=== PATIENT | male | born 1935 | race Caucasian/White ===

== ENCOUNTER 2017-06-05 13:33 | Emergency (ER) | payer MEDICARE, BC ==
--- NOTE | 2017-06-05 16:27 | EDM.PDOC ---
ED HPI GENERAL MEDICAL PROBLEM - General Chief Complaint: Gastrointestinal Problem Stated Complaint: BOWEL MOVEMENT Time Seen by Provider: 06/05/17 15:59 Source of Information: Reports: Patient, RN, RN Notes Reviewed History Limitations: Reports: No Limitations - History of Present Illness INITIAL COMMENTS - FREE TEXT/NARRATIVE: Patient had surgery 06/03/17 for kidney stone. He took Ibuprofen for pain. Last BM was 2-3 days ago which was normal hard. His abdominal pain is rated 6-7/10 since yesterday after noon. Location: Reports: Abdomen Quality: Reports: Ache Severity: Moderate Improves with: Reports: None Worsens with: Reports: None Associated Symptoms: Reports: No Other Symptoms - Related Data Allergies Allergy/AdvReac Type Severity Reaction Status Date / Time No Known Allergies Allergy Verified 06/05/17 14:48 Home Meds: Home Meds Diltiazem HCl [Diltiazem 24Hr Cd] 240 mg PO DAILY 11/09/13 [History] Hydrochlorothiazide [Microzide] 12.5 mg PO DAILY 11/09/13 [History] Lisinopril 40 mg PO DAILY 11/09/13 [History] Simvastatin [Zocor] 40 mg PO BEDTIME 11/09/13 [History] Warfarin Sodium [Jantoven] 5 mg PO DAILY 11/09/13 [History] Past Medical History HEENT History: Reports: Cataract, Impaired Vision Cardiovascular History: Reports: Afib, Heart Failure, High Cholesterol, Hypertension Genitourinary History: Reports: Prostate Disorder - Infectious Disease History Infectious Disease History: Reports: Chicken Pox, Mumps - Past Surgical History HEENT Surgical History: Reports: Cataract Surgery Social & Family History - Family History Family Medical History: Noncontributory - Tobacco Use Smoking Status *Q: Former Smoker Used Tobacco, but Quit: Yes Month Tobacco Last Used: unknown - Caffeine Use Caffeine Use: Reports: Coffee - Recreational Drug Use Recreational Drug Use: No ED ROS GENERAL - Review of Systems Review Of Systems: ROS reveals no pertinent complaints other than HPI. ED EXAM, GI/ABD - Physical Exam Exam: See Below Exam Limited By: No Limitations General Appearance: Alert, WD/WN, No Apparent Distress Eyes: Bilateral: Normal Appearance Ears: Normal External Exam, Normal Canal, Hearing Grossly Normal, Normal TMs Nose: Normal Inspection, Normal Mucosa, No Blood Throat/Mouth: Normal Inspection, Normal Lips, Normal Teeth, Normal Gums, Normal Oropharynx, Normal Voice, No Airway Compromise Head: Atraumatic, Normocephalic Neck: Normal Inspection, Supple, Non-Tender, Full Range of Motion Respiratory/Chest: No Respiratory Distress, Lungs Clear, Normal Breath Sounds, No Accessory Muscle Use, Chest Non-Tender Cardiovascular: Normal Peripheral Pulses, Regular Rate, Rhythm, No Edema, No Gallop, No JVD, No Murmur, No Rub GI/Abdominal Exam: Other (hypoactive bowel sounds.) (Male) Exam: Deferred Rectal (Males) Exam: Deferred Back Exam: Normal Inspection, Full Range of Motion, NT Extremities: Normal Inspection, Normal Range of Motion, Non-Tender, Normal Capillary Refill, No Pedal Edema Neurological: Alert, Oriented, CN II-XII Intact, Normal Cognition, Normal Gait, Normal Reflexes, No Motor/Sensory Deficits Psychiatric: Normal Affect, Normal Mood Skin Exam: Warm, Dry, Intact, Normal Color, No Rash Lymphatic: No Adenopathy Course - Vital Signs Last Recorded V/S: Last Vital Signs Temp 98.2 F 06/05/17 14:43 Pulse 104 H 06/05/17 14:43 Resp 18 06/05/17 14:43 BP 160/86 H 06/05/17 14:43 Pulse Ox 96 06/05/17 14:43 - Orders/Labs/Meds Meds: Medications Discontinued Medications Generic Name Dose Route Start Last Admin Trade Name Freq PRN Reason Stop Dose Admin Magnesium Citrate 200 ml 06/05/17 16:56 06/05/17 17:10 Citrate Of Magnesia PO 06/05/17 16:57 200 ml ONETIME ONE Administration - Radiology Interpretation Free Text/Narrative:: Abdomen x-ray: Right ureteral stent with pigtails respectively in the right renal pelvis and distally midline urinary bladder. Cardiomegaly. Lung bases clear. No free subdiaphragmatic air. Stool in the descending left and sigmoid colon with a few air-fluid levels in the hepatic flexure. No sign of abdominal soft tissue mass or mechanical small bowel obstruction. 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 AP pelvis and hips unremarkable. See rad report. Departure - Departure Time of Disposition: 17:37 Disposition: Home, Self-Care 01 Condition: Fair Clinical Impression: Constipation Qualifiers: Constipation type: unspecified constipation type Qualified Code(s): K59.00 - Constipation, unspecified Abdominal pain Qualifiers: Abdominal location: generalized Qualified Code(s): R10.84 - Generalized abdominal pain - Discharge Information Instructions: Abdominal Pain, Adult, [id number], Constipation, Adult, Easy-to -Read Forms: ED Department Discharge Additional Instructions: May use MiraLax or generic substitute as directed on the packaging. May use Magnesium Citrate as directed on the packaging. Drink plenty of water.
--- NOTE | 2017-06-05 16:53 | CR ---
Clinical history: 82-year-old male abdominal pain ("constipation"). Interpretation: Right ureteral stent with pigtails respectively in the right renal pelvis and distall y midline urinary bladder. Cardiomegaly. Lung bases clear. No free subdiaphragmatic air. Stool in the descending left and sigmoid colon with a few air-fluid levels in the hepatic flexure. No sign of abdominal soft tissue mass or mechanical small bowel obstruction. 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 AP pelvis and hips unremarkable.
[2017-06-05] MEDS ORDERED: Magnesium Citrate Solution 296 ML Bottle PO ONE (16:56)
== END 2017-06-05 17:43 | disposition home or self-care (01) ==
LOC: DL.ED 13:33
DX: K59.00 Constipation, unspecified (principal); I11.0 Hypertensive heart disease with heart failure; I50.9 Heart failure, unspecified; E78.00 Pure hypercholesterolemia, unspecified; I48.91 Unspecified atrial fibrillation; Z79.899 Other long term (current) drug therapy; Z87.891 Personal history of nicotine dependence
CPT/HCPCS: 74020; 99284; A9270; 99283

== ENCOUNTER 2017-07-07 16:52 | Observation (INO) | payer MEDICARE, BC ==
--- NOTE | 2017-07-07 17:20 | EDM.PDOC ---
ED HPI GENERAL MEDICAL PROBLEM - General Chief Complaint: Trauma Stated Complaint: FELL AND HIT HEAD Time Seen by Provider: 07/07/17 16:52 Source of Information: Reports: Patient, Family, RN, RN Notes Reviewed History Limitations: Reports: No Limitations - History of Present Illness INITIAL COMMENTS - FREE TEXT/NARRATIVE: PRIMARY TRAUMA SURVEY: Arrives per private vehicle in a wheelchair. Pt. awake, alert, oriented to person, place, and date. AIRWAY: Patent nasal and oral airways. Conversant with clear speech. BREATHING: Spontaneous respirations, with lungs CTA B/L. Good color, no cyanosis. CIRCULATION: Intact peripheral pulses at all 4 distal extremities, normal capillary refill time at all four extremities distal digits. Heart irregular, no murmur, no rub. DISABILITY/ DEFORMITIES: Minimal bleeding from superficial cuts above the right eyebrow, right side of the nose. Ecchymosis and hematoma forming above the right eyebrow. No upper or lower extremity pain, obvious deformity, or other signs of injury. Linda pelvis intact, stable and non-tender. Abdomen benign to exam. Chest non-tender anteriorly, no flail chest, crepitus, or subcutaneous emphysema. CN II-XII intact. Skin clean, dry, warm, with some superficial lacerations to the right eyebrow and nose. EXPOSURE: Pt. was log rolled with maintenance of c-spine immobilization, clothing/shirt was removed. No visible injury to back, no vertebral linda tenderness. Pt. returned via log roll to supine position on firm foam padded ER gurney. Pt presents to ER per private vehicle after falling and hitting his head. He states he was out for a 1 mile walk, as he does often, when he felt dizzy and lost his balance and fell on his face. He states his glasses are what did the damage to his face. Patient is on anticoagulants, and also due to age, a trauma code was called. A cervical collar was placed. Upon arrival patient is alert and oriented, answering questions appropriately. He denies pain other than directly on the hematoma forming on his right eyebrow. Onset: Today, Sudden - Related Data Allergies Allergy/AdvReac Type Severity Reaction Status Date / Time No Known Allergies Allergy Verified 06/05/17 14:48 Home Meds: Home Meds Diltiazem HCl [Diltiazem 24Hr Cd] 240 mg PO DAILY 11/09/13 [History] Hydrochlorothiazide [Microzide] 12.5 mg PO DAILY 11/09/13 [History] Lisinopril 40 mg PO DAILY 11/09/13 [History] Simvastatin [Zocor] 40 mg PO BEDTIME 11/09/13 [History] Warfarin Sodium [Jantoven] 5 mg PO DAILY 11/09/13 [History] Potassium Chloride 20 meq PO BID 07/07/17 [History] Past Medical History HEENT History: Reports: Cataract, Impaired Vision Cardiovascular History: Reports: Afib, Heart Failure, High Cholesterol, Hypertension Genitourinary History: Reports: Prostate Disorder - Infectious Disease History Infectious Disease History: Reports: Chicken Pox, Mumps - Past Surgical History HEENT Surgical History: Reports: Cataract Surgery Social & Family History - Family History Family Medical History: Noncontributory - Tobacco Use Smoking Status *Q: Former Smoker Used Tobacco, but Quit: Yes Month Tobacco Last Used: unknown - Caffeine Use Caffeine Use: Reports: Coffee - Recreational Drug Use Recreational Drug Use: No Review of Systems - Review of Systems Review Of Systems: ROS reveals no pertinent complaints other than HPI. ED EXAM, GENERAL - Physical Exam Exam: See Below Exam Limited By: No Limitations General Appearance: Alert, WD/WN, No Apparent Distress Eye Exam: Bilateral Eye: EOMI, PERRL (3) Ears: Normal External Exam, Normal Canal, Hearing Grossly Normal, Normal TMs Nose: Normal Inspection, Normal Mucosa, No Blood, Other (superficial cuts to the bridge of the nose, 0.5cm) Throat/Mouth: Normal Inspection, Normal Lips, Normal Teeth, Normal Gums, Normal Oropharynx, Normal Voice, No Airway Compromise Head: Normocephalic, Facial Swelling, Facial Tenderness, Sinus Tenderness Neck: Normal Inspection, Supple, Non-Tender, Full Range of Motion Respiratory/Chest: No Respiratory Distress, Lungs Clear, Normal Breath Sounds, No Accessory Muscle Use, Chest Non-Tender Cardiovascular: Normal Peripheral Pulses, No Edema, No Gallop, No JVD, No Murmur , No Rub, Irregularly Irregular Peripheral Pulses: 2+: Radial (L), Radial (R) GI/Abdominal: Normal Bowel Sounds, Soft, Non-Tender, No Organomegaly, No Distention, No Abnormal Bruit, No Mass, Pelvis Stable (Male) Exam: Deferred Rectal (Males) Exam: Deferred Back Exam: Normal Inspection, Full Range of Motion Extremities: Normal Inspection, Normal Range of Motion, Non-Tender, No Pedal Edema, Normal Capillary Refill Neurological: Alert, Oriented, Normal Cognition, No Motor/Sensory Deficits Psychiatric: Normal Affect, Normal Mood Skin Exam: Warm, Dry, Normal Color, No Rash Lymphatic: No Adenopathy Front/Back Body Diagram: 1 - Large hematoma, ecchymosis, superficial cut with small amount of bleeding 2 - ecchymosis, superficial cut with minimal bleeding EKG INTERPRETATION EKG Date: 07/07/17 Time: 18:20 Rhythm: A-Fib Rate (Beats/Min): 88 Comparison: NA - No Prior EKG Course - Orders/Labs/Meds Orders: Active Orders 24 hr Category Date Time Status EKG Documentation Completion [RC] STAT Care 07/07/17 18:09 Active Peripheral IV Care [RC] . DIRECTED Care 07/07/17 17:03 Active Cervical Spine wo Cont [CT] Urgent Exams 07/07/17 17:10 Taken Head wo Cont [CT] Urgent Exams 07/07/17 17:10 Taken Max Facial Sinus wo Cont [CT] Urgent Exams 07/07/17 17:10 Taken UA W/MICROSCOPIC [URIN] Stat Lab 07/07/17 18:19 Results Sodium Chloride 0.9% [Saline Flush] Med 07/07/17 17:02 Active 10 ml FLUSH ASDIRECTED PRN Peripheral IV Insertion Adult [OM.PC] Stat Oth 07/07/17 17:02 Ordered Medication Orders Sodium Chloride (Saline Flush) 10 ml FLUSH ASDIRECTED PRN PRN Reason: Keep Vein Open Last Admin: 07/07/17 18:25 Dose: 10 ml Labs: Laboratory Tests 07/07/17 07/07/17 07/07/17 Range/Units 17:06 17:06 17:06 WBC 7.5 (5.0-10.0) 10^3/uL RBC 5.08 (4.6-6.2) 10^6/uL Hgb 15.3 (14.0-18.0) g/dL Hct 44.3 (40.0-54.0) % MCV 87.2 (80-100) fL MCH 30.1 (27.0-34.0) pg MCHC 34.5 (33.0-35.0) g/dL Plt Count 181 (150-450) 10^3/uL Neut % (Auto) 78.4 H (42.2-75.2) % Lymph % (Auto) 8.9 L (20.5-50.1) % Tate % (Auto) 11.0 H (2-8) % Eos % (Auto) 1.3 (1.0-3.0) % Baso % (Auto) 0.4 (0.0-1.0) % PT 23.4 H (9.0-12.0) SEC INR 2.3 H (0.9-1.2) Sodium 139 (135-145) mmol/L Potassium 3.4 L (3.6-5.0) mmol/L Chloride 103 (101-111) mmol/L Carbon Dioxide 24.0 (21.0-31.0) mmol/L Anion Gap 15.4 BUN 30 H (7-18) mg/dL Creatinine 1.3 (0.6-1.3) mg/dL Est Cr Clr Drug Dosing TNP Estimated GFR (MDRD) 53 BUN/Creatinine Ratio 23.07 Glucose 100 (74-105) mg/dL Calcium 9.2 (8.4-10.2) mg/dl Total Bilirubin 1.2 H (0.2-1.0) mg/dL AST 30 (10-42) IU/L ALT 18 (10-60) IU/L Alkaline Phosphatase 76 (42-121) IU/L Troponin I 0.03 H* (0.00-0.02) ng/ml Total Protein 6.8 (6.7-8.2) g/dl Albumin 3.6 (3.2-5.5) g/dl Globulin 3.2 Albumin/Globulin Ratio 1.13 Urine Color (YELLOW) Urine Appearance (CLEAR) Urine pH (5.0-9.0) Ur Specific [facility] (1.005-1.030) Urine Protein (NEGATIVE) Urine Glucose (UA) (NEGATIVE) Urine Ketones (NEGATIVE) Urine Occult Blood (NEGATIVE) Urine Nitrite (NEGATIVE) Urine Bilirubin (NEGATIVE) Urine Urobilinogen (0.2-1.0) mg/dL Ur Leukocyte Esterase (NEGATIVE) 07/07/17 Range/Units 18:19 WBC (5.0-10.0) 10^3/uL RBC (4.6-6.2) 10^6/uL Hgb (14.0-18.0) g/dL Hct (40.0-54.0) % MCV (80-100) fL MCH (27.0-34.0) pg MCHC (33.0-35.0) g/dL Plt Count (150-450) 10^3/uL Neut % (Auto) (42.2-75.2) % Lymph % (Auto) (20.5-50.1) % Tate % (Auto) (2-8) % Eos % (Auto) (1.0-3.0) % Baso % (Auto) (0.0-1.0) % PT (9.0-12.0) SEC INR (0.9-1.2) Sodium (135-145) mmol/L Potassium (3.6-5.0) mmol/L Chloride (101-111) mmol/L Carbon Dioxide (21.0-31.0) mmol/L Anion Gap BUN (7-18) mg/dL Creatinine (0.6-1.3) mg/dL Est Cr Clr Drug Dosing Estimated GFR (MDRD) BUN/Creatinine Ratio Glucose (74-105) mg/dL Calcium (8.4-10.2) mg/dl Total Bilirubin (0.2-1.0) mg/dL AST (10-42) IU/L ALT (10-60) IU/L Alkaline Phosphatase (42-121) IU/L Troponin I (0.00-0.02) ng/ml Total Protein (6.7-8.2) g/dl Albumin (3.2-5.5) g/dl Globulin Albumin/Globulin Ratio Urine Color Yellow (YELLOW) Urine Appearance Clear (CLEAR) Urine pH 5.5 (5.0-9.0) Ur Specific [facility] [facility] 1.020 (1.005-1.030) Urine Protein 100 H (NEGATIVE) Urine Glucose (UA) Negative (NEGATIVE) Urine Ketones Negative (NEGATIVE) Urine Occult Blood Small H (NEGATIVE) Urine Nitrite Negative (NEGATIVE) Urine Bilirubin Negative (NEGATIVE) Urine Urobilinogen 0.2 (0.2-1.0) mg/dL Ur Leukocyte Esterase Negative (NEGATIVE) Meds: Medications Generic Name Dose Route Start Last Admin Trade Name Freq PRN Reason Stop Dose Admin Sodium Chloride 10 ml 07/07/17 17:02 07/07/17 18:25 Saline Flush FLUSH 10 ml ASDIRECTED PRN Administration Keep Vein Open - Radiology Interpretation Free Text/Narrative:: Head CT wo contrast: No acute findings C Spine CT wo contrast: No acute findings Max/facial CT wo contrast: No acute findings See rad report Departure - Departure Time of Disposition: 18:49 Disposition: Refer to Observation Clinical Impression: Contusion Qualifiers: Encounter type: initial encounter Contusion area: head Contusion of head detail : orbital tissues Laterality: right Qualified Code(s): S05.11XA - Contusion of eyeball and orbital tissues, right eye, initial encounter Contusion of nose Qualifiers: Encounter type: initial encounter Qualified Code(s): S00.33XA - Contusion of nose, initial encounter Contusion of face Qualifiers: Encounter type: initial encounter Qualified Code(s): S00.83XA - Contusion of other part of head, initial encounter - Discharge Information Referrals: Renate Rios PA [Primary Care Provider] - Forms: ED Department Discharge - My Orders Last 24 Hours: My Active Orders 07/07/17 17:02 Sodium Chloride 0.9% [Saline Flush] 10 ml FLUSH ASDIRECTED PRN Peripheral IV Insertion Adult [OM.PC] Stat 07/07/17 17:03 Peripheral IV Care [RC] . DIRECTED 07/07/17 17:10 Cervical Spine wo Cont [CT] Urgent Head wo Cont [CT] Urgent Max Facial Sinus wo Cont [CT] Urgent 07/07/17 18:09 EKG Documentation Completion [RC] STAT 07/07/17 18:19 UA W/MICROSCOPIC [URIN] Stat - Assessment/Plan Last 24 Hours: My Active Orders 07/07/17 17:02 Sodium Chloride 0.9% [Saline Flush] 10 ml FLUSH ASDIRECTED PRN Peripheral IV Insertion Adult [OM.PC] Stat 07/07/17 17:03 Peripheral IV Care [RC] . DIRECTED 07/07/17 17:10 Cervical Spine wo Cont [CT] Urgent Head wo Cont [CT] Urgent Max Facial Sinus wo Cont [CT] Urgent 07/07/17 18:09 EKG Documentation Completion [RC] STAT 07/07/17 18:19 UA W/MICROSCOPIC [URIN] Stat
[2017-07-07 17:40] LABS: CHLORIDE,CL 103 mmol/L (101-111); SODIUM,NA 139 mmol/L (135-145)
[2017-07-07] MEDS: Sodium Chloride 0.9% 10 ML Syringe FLUSH PRN (18:25)
[2017-07-07] MEDS ORDERED: oxyCODONE 5 MG Tab PO PRN (20:57)
[2017-07-07] MEDS ORDERED: Ondansetron 4 MG Tab.DIS PO PRN (20:57)
[2017-07-07] MEDS ORDERED: Phytonadione ORAL 2.5mg/2.5ml Soln Simple Syrup U/D PO ONE (21:02)
[2017-07-07] MEDS: Potassium Chloride 10 MEQ Tab.ER PO SCH (22:16)
--- NOTE | 2017-07-08 00:49 | HP ---
CHIEF COMPLAINT: Had a fall. HISTORY OF PRESENT ILLNESS: Mr. Emilee Buckner is an 82-year-old male with a medical history significant for hypertension, hyperlipidemia, paroxysmal atrial fibrillation on chronic anticoagulation with Coumadin, history of prostate cancer in the past requiring Lupron and external beam radiation treatment in the past, presented to the ER after having a fall and was noted to have bleeding around the periorbital area on the right side. The patient had a CT scan of the head cervical spine and also the facial bones, which did not show any acute fracture or an acute pathology, but the patient is being referred to observation status for closer monitoring. At this time, the patient complains of mild pain around the periorbital site, but denied any headache, no changes in the vision, no nausea, and no vomiting. The patient claims that earlier today while he was walking outside the house, shoes gave away, he slipped and fell onto his face and also his glasses broke and injured his right periorbital area. He did not lose his consciousness. A bystander helped him to slat pickler from the ground. He denied any palpitations or dizziness or loss of consciousness during or after the fall. He denied any seizure-like activity. Also, he denied any loss of bladder tone or rectal tone during this event. He denies any fevers or chills in the last few days. No nausea vomiting or diarrhea in the last few days. No complaints of hematemesis, hematochezia, or melanotic stools in the last few days. No fevers or chills in the last few days. No cough with sputum in the last few days. No burning micturition in the last few days. The patient denied any history of chest pains on exertion. No history of dyspnea on exertion. No history of orthopnea or paroxysmal nocturnal dyspnea. The patient denied any history of hematemesis, hematochezia, or melanotic stools in the past. Normal bowel and bladder habits, but he has been noticing some increased nocturnal urination. REVIEW OF SYSTEMS: A complete review of system including skin, ear, nose, and throat, cardiovascular system, respiratory system, gastrointestinal system, genitourinary system, hematology, oncology, neurology, allergy, immunology, and constitutional were all evaluated and they were negative except for the above- said notes. 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 PAST SURGICAL HISTORY: Significant for cataract extraction with implant, atrial cardioversion, which was unsuccessful, and skin biopsy. FAMILY HISTORY: Significant for heart disease in his mother and cancer in his father, Alzheimer disease in one of his sisters, cancer in another sister, and heart disease and prostate cancer in his brothers. SOCIAL HISTORY: The patient denied any history of smoking tobacco. No history of alcohol intake. ALLERGIES: No known drug allergies. HOME MEDICATIONS: Include: 1. Multivitamin tablet twice a day. 2. Coumadin 5 mg daily. 3. Potassium chloride 20 mg twice a day. 4. Diltiazem 240 mg daily. 5. Hydrochlorothiazide 12.5 mg daily. 6. Lisinopril 40 mg daily. 7. Simvastatin 40 mg at bedtime. PHYSICAL EXAMINATION: Vital Signs: Irregular heart rate. General Appearance: The patient is well oriented to time, place, and person. Follows commands spontaneously. Cardiovascular: S1, S2 heard with normal intensity. No gallops. Respiratory: Clear to auscultation bilaterally. No wheeze. No crepitations. Abdomen: Soft. Bowel sounds positive. Nontender. No rigidity. No guarding. No rebound tenderness. Extremities: No edema bilateral lower extremities. Neurologic: No gross focal neurological deficits. Equal strength in all the 4 extremities. Pupils are equally reactive to light. Head Exam: The patient is noted to have lacerations around the periorbital area on the right side. He has some mild ecchymosis, but his extraocular movements are equal on both the sides, and pupils are equally reactive on both the sides, no major trauma noted to the scalp area. LABORATORY DATA: WBC 7.5, hemoglobin 15.3, hematocrit 44.3, and platelet count 181. INR 2.3. Sodium 139, potassium 3.4, chloride 103, bicarb 24, BUN 30, creatinine 1.3, glucose 100, total bilirubin 1.2, AST 30, ALT 18, troponin 0.03. Urinalysis negative for nitrites, negative for leukocytes. CT scan of the brain did not show any acute pathology. No acute intracranial hemorrhage. CT scan of the cervical spine shows no fracture. CT scan of the facial bone shows no acute fractures. ASSESSMENT: 1. Closed head injury. 2. Status post fall resulting in closed head injury. 3. Coagulopathy from Coumadin use. 4. Hypertension. 5. Hyperlipidemia. 6. Atrial fibrillation. 7. On chronic anticoagulation with Coumadin. PLAN: 1. Status post fall resulting in closed head injury. The patient will be referred to observation status. He is noted to be on Coumadin, and his INR is therapeutic levels. We will hold off the Coumadin for now. No major bleeding noted except for the periorbital area where he has some ecchymosis. We will give him mild dose of vitamin K around 2 mg of vitamin K to avoid any further complications. Currently, CT scan of the head did not show any acute bleed, but given his age and possible concussion injury resulting in possible subdural hematoma, we will hold off the Coumadin, reverse INR at this time and resume it in next 2 days if he remains hemodynamically stable. 2. Hypertension. The patient's blood pressure will be closely monitored. He is noted to be on diltiazem. Continue the same. 3. Atrial fibrillation. Rate seems to be well controlled. Continue the diltiazem. 4. DVT prophylaxis. Avoid any heparin products secondary to recent fall and periorbital bleed and elevated INR. 5. Code status. The patient wants to be full code. 6. Discussed with the patient regarding the plan of care. Discussed with ER physician regarding the plan of care. Reviewed the labs and medications. Reviewed the old charts. [facility] /[id number] MTDD
[2017-07-08 07:05] LABS: CHLORIDE,CL 106 mmol/L (101-111); SODIUM,NA 139 mmol/L (135-145)
[2017-07-08] MEDS ORDERED: Diltiazem 240 MG Cap.CD PO SCH (09:00)
[2017-07-08] MEDS ORDERED: Lutein/Minerals/Vit A,C & E Tab PO SCH (09:00)
[2017-07-08] MEDS ORDERED: Potassium Chloride 10 MEQ Tab.ER PO SCH (09:00)
[2017-07-08] MEDS ORDERED: Lisinopril 20 MG Tab PO SCH (09:00)
[2017-07-08] MEDS ORDERED: Hydrochlorothiazide 25 MG Tab PO SCH (09:00)
[2017-07-08] MEDS: Potassium Chloride 10 MEQ Tab.ER PO SCH (09:03)
[2017-07-08] MEDS: Sodium Chloride 0.9% 10 ML Syringe FLUSH PRN (09:18)
[2017-07-08] MEDS ORDERED: Potassium Chloride 10 MEQ Tab.ER PO ONE (10:22)
[2017-07-08] MEDS ORDERED: Simvastatin 40 MG Tab PO SCH (21:00)
--- NOTE | 2017-07-09 01:20 | DISCH ---
ADMITTING DIAGNOSES: 1. Closed head injury status post fall. 2. Mild trauma to the periorbital area. 3. Coagulopathy from Coumadin use. DISCHARGE DIAGNOSES: 1. Closed head injury resulting from a fall. 2. Periorbital wound, much improved. No evidence of hematoma at this time. 3. Coagulopathy from Coumadin use. Received vitamin K on this admission. HISTORY OF PRESENTING ILLNESS: Mr. Emilee Buckner is an 82-year-old male with medical history significant for hypertension, hyperlipidemia, paroxysmal atrial fibrillation, on chronic anticoagulation with Coumadin, admitted after having a fall when his shoes gave away and fell on the pavement. He fell on his head first, resulting in trauma around the right periorbital area. The patient had a CT scan of the cervical spine, CT scan of the head and facial bones at the time of admission, which did not show any acute fracture or any acute intracranial hemorrhage. The patient was noted to have mild ecchymosis at the right periorbital area. The patient was given a low dose of vitamin K as his INR was in therapeutic range. The patient responded well to that treatment. He denied any further complaints of nausea or vomiting. No headaches. No changes in the vision. He is able to ambulate well without any difficulty. He denied any dizziness. No focal neurological deficits were observed. The patient was discharged home in stable condition. He was advised to hold the Coumadin for next 2 days and follow with his primary care physician within 1 week of time. He was advised not to drive any vehicles at this time. DISCHARGE MEDICATIONS: 1. Diltiazem 240 mg daily. 2. Hydrochlorothiazide 12.5 mg daily. 3. Lisinopril 40 mg daily. 4. Potassium chloride 20 mEq twice a day. 5. Simvastatin 40 mg at bedtime. 6. Coumadin 5 mg daily. To hold the Coumadin for next 2 days to avoid any complications of bleeding secondary to recent trauma. PHYSICAL EXAMINATION: On the day of discharge: Vital Signs: Temperature of 98.1, pulse of 74, blood pressure 128/61, respiratory rate of 20, saturating at 98% on room air. General Appearance: The patient is well oriented to time, place, and person. Follows commands spontaneously. Cardiovascular System: S1, S2 heard with normal intensity. No gallops. Respiratory System: Clear to auscultation bilaterally. No wheeze. No crepitations. Abdomen: Soft. Bowel sounds positive. Nontender. No rigidity. Extremities: No edema in bilateral lower extremities. Neurology: No gross focal neurological deficits. CONDITION ON ADMISSION: Poor. CONDITION ON DISCHARGE: Stable. ACTIVITY: As tolerated. DIET: Cardiac healthy diet. FOLLOWUP: Follow up with primary care physician in next one week of time. [facility] /[id number]
--- NOTE | 2017-07-09 13:27 | EKG ---
07/07/2017- RK HO J - FINDINGS: A 12-lead EKG interpretation shows atrial fibrillation with heart rate of 88. No significant ST elevation or ST depression noted on this 12-lead EKG. Nonspecific ST-T wave changes noted on leads V2 and V3. [facility] /[id number]
== END 2017-07-08 13:15 | disposition home or self-care (01) ==
LOC: DL.ED 16:52 → DL.MS 18:52 → UNDOADMOB 18:52 → DL.MS 20:57
PROVIDERS: ADMIT Internal Medicine; ATTEND Internal Medicine
DX: S09.90XA Unspecified injury of head, initial encounter (principal); S05.90XA Unspecified injury of unspecified eye and orbit, initial encounter; I10 Essential (primary) hypertension; E78.5 Hyperlipidemia, unspecified; I48.0 Paroxysmal atrial fibrillation; D68.9 Coagulation defect, unspecified; Z79.01 Long term (current) use of anticoagulants; W01.10XA Fall on same level from slipping, tripping and stumbling with subsequent striking against unspecified object, initial encounter; Z79.899 Other long term (current) drug therapy; Z87.891 Personal history of nicotine dependence
CPT/HCPCS: 36415; 70450; 70486; 72125; 80048; 80053; 81001; 84484; 85025; 85027; 85610; 93005; 93010; 96372; 97161; 97165; 99285; A9270; G0378; J3430; J7050; 99284

== ENCOUNTER 2020-08-26 20:18 | Emergency (ER) | payer MEDICARE, BC ==
[2020-08-26 21:45] LABS: ANION GAP 15.1 mEq/L (7-13)
--- NOTE | 2020-08-26 21:55 | EDM.PDOC ---
ED HPI GENERAL MEDICAL PROBLEM - General Chief Complaint: Lower Extremity Injury/Pain Stated Complaint: WEAKNESS, BILATERAL KNEE PAIN, EDEMA, VOMITING Time Seen by Provider: 08/26/20 21:52 Source of Information: Reports: Patient, Family History Limitations: Reports: No Limitations - History of Present Illness INITIAL COMMENTS - FREE TEXT/NARRATIVE: pt [facility] and was leaving but fell onto both knees when glasses fogged up from his mask. bystander helped him back up. denies head/neck injury or pain. been very weak and been vomiting on-off no diarrhoea. got covid vax yesterday and were warned about side effects. - Related Data Allergies Allergy/AdvReac Type Severity Reaction Status Date / Time No Known Allergies Allergy Verified 08/26/20 21:19 Home Meds: Home Meds Diltiazem [Dilacor XR] 240 mg PO DAILY 08/26/20 [History] Potassium Chloride 20 meq PO DAILY 08/26/20 [History] Simvastatin [Zocor] 40 mg PO DAILY 08/26/20 [History] Warfarin [Coumadin] 3 mg PO ASDIRECTED 08/26/20 [History] hydroCHLOROthiazide [Hydrochlorothiazide] 12.5 mg PO DAILY 08/26/20 [History] lisinopriL [Lisinopril] 40 mg PO DAILY 08/26/20 [History] Past Medical History HEENT History: Reports: Cataract, Impaired Vision, Macular Degeneration Cardiovascular History: Reports: Afib, Heart Failure, High Cholesterol, Hypertension Genitourinary History: Reports: Prostate Disorder - Infectious Disease History Infectious Disease History: Reports: Chicken Pox, Mumps - Past Surgical History HEENT Surgical History: Reports: Cataract Surgery Social & Family History - Family History Family Medical History: No Pertinent Family History - Tobacco Use Tobacco Use Status *Q: Never Tobacco User Second Hand Smoke Exposure: No - Caffeine Use Caffeine Use: Reports: Coffee - Recreational Drug Use Recreational Drug Use: No Review of Systems - Review of Systems Review Of Systems: Comprehensive ROS is negative, except as noted in HPI. ED EXAM, GENERAL - Physical Exam Exam: See Below Exam Limited By: No Limitations General Appearance: Alert, WD/WN, Mild Distress, Other (discomfort) Ears: Hearing Grossly Normal Throat/Mouth: Normal Voice, No Airway Compromise Head: Atraumatic Neck: Non-Tender, Full Range of Motion Respiratory/Chest: No Respiratory Distress Cardiovascular: Regular Rate, Rhythm GI/Abdominal: Soft, Non-Tender (Male) Exam: Deferred Rectal (Males) Exam: Deferred Extremities: Other (bilateral knee swelling tender R/P, NV wnl, gait unable due to pain and weakness. no ecchymosis) Neurological: Alert, Oriented, Normal Cognition, No Motor/Sensory Deficits Psychiatric: Flat Affect Skin Exam: Warm, Dry, Normal Color Lymphatic: No Adenopathy Course - Vital Signs Last Recorded V/S: Last Vital Signs Temp 37.0 C 08/26/20 21:11 Pulse 75 08/26/20 21:11 Resp 20 08/26/20 21:11 BP 168/94 H 08/26/20 21:11 Pulse Ox 96 08/26/20 21:11 - Orders/Labs/Meds Labs: Laboratory Tests 08/26/20 08/26/20 08/26/20 Range/Units 21:20 21:20 21:20 WBC 11.7 H (5.0-10.0) 10^3/uL RBC 5.26 (4.6-6.2) 10^6/uL Hgb 15.8 (14.0-18.0) g/dL Hct 46.0 (40.0-54.0) % MCV 87.5 (80-100) fL MCH 30.0 (27.0-34.0) pg MCHC 34.3 (33.0-35.0) g/dL Plt Count 156 (150-450) 10^3/uL Neut % (Auto) 84.4 H (42.2-75.2) % Lymph % (Auto) 1.8 L (20.5-50.1) % [place] % (Auto) 13.6 H (2-8) % Eos % (Auto) 0.0 L (1.0-3.0) % Baso % (Auto) 0.2 (0.0-1.0) % PT 48.1 H (9.0-12.0) SEC INR 5.1 H (0.9-1.2) Sodium 136 (136-145) mmol/L Potassium 4.1 (3.5-5.1) mmol/L Chloride 99 (98-107) mmol/L Carbon Dioxide 26 (21-32) mmol/L Anion Gap 15.1 H (7-13) mEq/L BUN 27 H (7-18) mg/dL Creatinine 1.39 H (0.70-1.30) mg/dL Est Cr Clr Drug Dosing 41.58 mL/min Estimated GFR (MDRD) 49 BUN/Creatinine Ratio 19.4 (No establ ref range) Glucose 167 H (74-99) mg/dL Lactic Acid (0.4-2.0) mmol/L Calcium 8.9 (8.5-10.1) mg/dL Total Bilirubin 2.8 H (0.2-1.0) mg/dL AST 24 (15-37) U/L ALT 27 (16-63) U/L Alkaline Phosphatase 111 (46-116) U/L Total Protein 7.0 (6.4-8.2) g/dL Albumin 3.4 (3.4-5.0) g/dL Globulin 3.6 Albumin/Globulin Ratio 0.9 01/29/21 Range/Units 21:20 WBC (5.0-10.0) 10^3/uL RBC (4.6-6.2) 10^6/uL Hgb (14.0-18.0) g/dL Hct (40.0-54.0) % MCV (80-100) fL MCH (27.0-34.0) pg MCHC (33.0-35.0) g/dL Plt Count (150-450) 10^3/uL Neut % (Auto) (42.2-75.2) % Lymph % (Auto) (20.5-50.1) % [place] % (Auto) (2-8) % Eos % (Auto) (1.0-3.0) % Baso % (Auto) (0.0-1.0) % PT (9.0-12.0) SEC INR (0.9-1.2) Sodium (136-145) mmol/L Potassium (3.5-5.1) mmol/L Chloride (98-107) mmol/L Carbon Dioxide (21-32) mmol/L Anion Gap (7-13) mEq/L BUN (7-18) mg/dL Creatinine (0.70-1.30) mg/dL Est Cr Clr Drug Dosing mL/min Estimated GFR (MDRD) BUN/Creatinine Ratio (No establ ref range) Glucose (74-99) mg/dL Lactic Acid 2.5 H* (0.4-2.0) mmol/L Calcium (8.5-10.1) mg/dL Total Bilirubin (0.2-1.0) mg/dL AST (15-37) U/L ALT (16-63) U/L Alkaline Phosphatase (46-116) U/L Total Protein (6.4-8.2) g/dL Albumin (3.4-5.0) g/dL Globulin Albumin/Globulin Ratio - Re-Assessments/Exams Free Text/Narrative Re-Assessment/Exam: 08/26/20 22:[address] Black @ who kindly accepted pt. Departure - Departure Time of Disposition: 22:53 Disposition: DC/Tfer to Acute Hospital 02 Condition: Fair Clinical Impression: Vomiting after vaccination, Dehydration symptoms, Weakness, Elevated INR (international normalized ratio) due to prior anticoagulant medication ingestion, Bilateral knee effusions - Discharge Information Forms: Interfacility Transfer [facility] Sepsis Event Note (ED) - Evaluation Sepsis Screening Result: No Definite Risk - Focused Exam Vital Signs: Vital Signs Temp Pulse Resp BP Pulse Ox 08/26/20 21:11 37.0 C 75 20 168/94 H 96
--- NOTE | 2020-08-26 22:00 | CT ---
PROCEDURE INFORMATION: Exam: CT Right Lower Extremity Without Contrast, Knee Exam date and time: 08/26/2020 9:29 PM Age: 85 years old Clinical indication: Other: Fell on both knees--unable to stand TECHNIQUE: Imaging protocol: CT of the Right lower extremity without contrast was performed. Exam focused on the knee. Total images: 342 Radiation optimization: All CT scans at this facility use at least one of these dose optimization techniques: automated exposure control; mA and/or kV adjustment per patient size (includes targeted exams where dose is matched to clinical indication); or iterative reconstruction. COMPARISON: No relevant prior studies available. FINDINGS: Bones/joints: Osteopenia. Moderate right knee joint effusion. Severe joint space narrowing in the medial tibiofemoral compartment. Moderate joint space narrowing in the lateral compartment. Mild medial and lateral joint line spurring. Chondrocalcinosis in the fibro cartilaginous structures of the knee consistent with CPPD. No fractures are identified. Mild articular spurring is seen along the weight-bearing articular surface of the medial femoral condyle and along the posterior aspect of the lateral femoral condyle weight-bearing articular surface. 4 mm subarticular bone island in the lateral femoral condyle. Patellofemoral alignment is normal for positioning. Mild patellofemoral spurring. Moderate chondral thinning along the lateral patellar facet and lateral trochlear ridge. Soft tissues: Small Reyes's cyst arising from the semimembranosus/gastrocnemius bursa measuring 2 x 1.8 by 3.5 cm. Asymmetric fatty muscular atrophy involving the posterior compartment musculature of the right calf, nonspecific. Vasculature: Moderate calcific atherosclerosis in the distal SFA and popliteal artery. Varicose veins in the posterior calf small saphenous vein distribution measuring up to 8 mm diameter. IMPRESSION: 1. No fracture or dislocation is identified. 2. Osteopenia and advanced osteoarthritic changes which are most pronounced in the medial compartment. 3. Chondrocalcinosis suggesting CPPD. 4. Moderate joint effusion and small Reyes's cyst. 5. Asymmetric muscular atrophy involving the right calf musculature with extensive fatty transformation. This is nonspecific. 6. Varicose veins in the posterior calf small saphenous vein distribution measuring up to 8 mm in diameter. PROCEDURE INFORMATION: Exam: CT Left Lower Extremity Without Contrast, Knee Exam date and time: 08/26/2020 9:29 PM Age: 85 years old Clinical indication: Other: Fell on both knees--unable to stand TECHNIQUE: Imaging protocol: CT of the Left lower extremity without contrast was performed. Exam focused on the knee. Radiation optimization: All CT scans at this facility use at least one of these dose optimization techniques: automated exposure control; mA and/or kV adjustment per patient size (includes targeted exams where dose is matched to clinical indication); or iterative reconstruction. COMPARISON: No relevant prior studies available. FINDINGS: Bones/joints: Osteopenia. Moderate joint effusion primarily in the suprapatellar bursa. There is moderate chondrocalcinosis in the fibrocartilage of the tibiofemoral compartments suggestive of CPPD. No fracture. Severe joint space narrowing in the medial tibiofemoral compartment. Moderate lateral compartment degenerative joint space narrowing. Mild medial and lateral joint line spurring. Moderate patellofemoral spurring and chondral thinning. Mild articular spurring along the weight-bearing surfaces of the medial and lateral femoral condyles. Soft tissues: Small Reyes cyst arising from the semimembranosus gastrocnemius bursa measuring 1.5 x 1.4 by 2.3 cm containing minimal synovial calcifications. Mild synovial calcification also noted in the suprapatellar bursa. Vasculature: Moderate calcific atherosclerosis. Mild varicose vein formation in the posteromedial calf arising from the small saphenous vein measuring up to 5 mm diameter. IMPRESSION: 1. No fracture or dislocation. 2. Osteopenia. 3. Advanced osteoarthritic changes in the left knee, most pronounced in the medial compartment. 4. Chondrocalcinosis suggestive of CPPD. 5. Moderate joint effusion and small Reyes's cyst. 6. Mild varicose vein formation in the posteromedial subcutaneous tissues of the calf.
== END 2020-08-27 00:04 ==
LOC: DL.ED 20:18
DX: T88.1XXA Other complications following immunization, not elsewhere classified, initial encounter (principal); R11.10 Vomiting, unspecified; R53.1 Weakness; R79.1 Abnormal coagulation profile; M25.462 Effusion, left knee; M25.461 Effusion, right knee; I48.91 Unspecified atrial fibrillation; I11.0 Hypertensive heart disease with heart failure; I50.9 Heart failure, unspecified; E78.00 Pure hypercholesterolemia, unspecified
CPT/HCPCS: 36415; 73700-50; 80053; 83605; 85025; 85610; 99284; 99285-25

== ENCOUNTER 2020-08-31 09:29 | Inpatient (IN) | payer MEDICARE, BC ==
[2020-08-31] MEDS ORDERED: Ondansetron 4 MG Tab.DIS PO PRN (14:20)
--- NOTE | 2020-08-31 14:54 | PCM.HP ---
H&P History of Present Illness - General Date of Service: 08/31/20 Admit Problem/Dx: Admission Diagnosis/Problem Admission Diagnosis/Problem Weakness Source of Information: Patient - History of Present Illness Initial Comments - Free Text/Narative: the patient is an 85-year-old man with medical history of atrial fibrillation on chronic anticoagulation with Coumadin, hypertension, prediabetes, and history of prostate cancer. Patient fell and sustained bilateral knee hemarthrosis. He underwent aspiration of blood from both knees. Patient is transferred to [facility] for physical and occupational therapy. He continues to have pain in both knees. Describes it as dull in nature with intensity of 5 for scale 0-10. More with activity and better with resting. Analgesics aren't helping. No nausea and no vomiting.Denies having chest pain. - Related Data Allergies/Adverse Reactions: Allergies Allergy/AdvReac Type Severity Reaction Status Date / Time No Known Allergies Allergy Verified 08/31/20 10:10 Home Medications: Home Meds Diltiazem [Dilacor XR] 240 mg PO DAILY 08/26/20 [History] Potassium Chloride 20 meq PO BID 08/26/20 [History] Simvastatin [Zocor] 40 mg PO DAILY 08/26/20 [History] Warfarin [Coumadin] 3 mg PO ASDIRECTED 08/26/20 [History] hydroCHLOROthiazide [Hydrochlorothiazide] 12.5 mg PO DAILY 08/26/20 [History] lisinopriL [Lisinopril] 40 mg PO DAILY 08/26/20 [History] Calcium Carbonate/Vitamin D3 [Calcium 600Mg-D3 400 Unit Sfgl] 1 cap PO DAILY 08/31/20 [History] Past Medical History HEENT History: Reports: Cataract, Impaired Vision, Macular Degeneration Cardiovascular History: Reports: Afib, Heart Failure, High Cholesterol, Hypertension Genitourinary History: Reports: Prostate Disorder Psychiatric History: Reports: Depression - Infectious Disease History Infectious Disease History: Reports: Chicken Pox, Mumps - Past Surgical History HEENT Surgical History: Reports: Cataract Surgery Social & Family History - Family History Family Medical History: No Pertinent Family History - Tobacco Use Tobacco Use Status *Q: Former Tobacco User Used Tobacco, but Quit: Yes Month/Year Tobacco Last Used: july - Caffeine Use Caffeine Use: Reports: Coffee - Recreational Drug Use Recreational Drug Use: No H&P Review of Systems - Review of Systems: Review Of Systems: See Below General: Reports: Weakness, Fatigue Pulmonary: Reports: No Symptoms Cardiovascular: Reports: No Symptoms Gastrointestinal: Reports: No Symptoms Musculoskeletal: Reports: Other (bilateral knee pain) Skin: Reports: No Symptoms Exam - Exam Exam: See Below - Vital Signs Vital Signs: Last Vital Signs Temp 36.2 C 08/31/20 13:30 Pulse 84 08/31/20 13:30 Resp 20 08/31/20 13:30 BP 142/53 H 08/31/20 13:30 Pulse Ox 96 08/31/20 13:30 Weight: 88.632 kg - Exam General: Alert, Oriented, Cooperative Neck: Supple, Trachea Midline, 2 Lungs: Clear to Auscultation, Normal Respiratory Effort Cardiovascular: Regular Rate, Regular Rhythm GI/Abdominal Exam: Normal Bowel Sounds, Soft, Non-Tender, No Organomegaly, No Distention, No Abnormal Bruit, No Mass, Pelvis Stable Back Exam: Normal Inspection, Full Range of Motion, NT Extremities: Other (bilateral knee pain) Skin: Warm, Dry, Intact Psychiatric: Alert, Normal Mood Problem List Initiated/Reviewed/Updated: Yes Orders Last 24hrs: Active Orders 24 hr Category Date Time Status Patient Status [ADT] Routine ADT 08/31/20 14:20 Active Oxygen Therapy [RC] PRN Care 08/31/20 14:20 Active Up ad Marisa [RC] ASDIRECTED Care 08/31/20 14:20 Active Vital Signs [RC] Q4H Care 08/31/20 14:20 Active OT Evaluation and Treatment [CONS] Routine Cons 08/31/20 14:20 Active PT Evaluation and Treatment [CONS] Routine Cons 08/31/20 14:20 Active Regular Diet [DIET] Diet 08/31/20 Lunch Active Acetaminophen [TylenoL] Med 08/31/20 14:20 Active 650 mg PO Q4H PRN Calcium Carbonate/Vitamin D3 [Calcium 600Mg-D3 400 Unit Med 09/01/20 09:00 Ordered Sfgl] 1 cap PO DAILY Diltiazem [Dilacor XR] Med 09/01/20 09:00 Ordered 240 mg PO DAILY Ondansetron [Zofran ODT] Med 08/31/20 14:20 Active 8 mg PO Q4H PRN Potassium Chloride [Potassium Chloride] Med 08/31/20 21:00 Ordered 20 meq PO BID Sertraline [Zoloft] Med 09/01/20 09:00 Ordered 25 mg PO DAILY Simvastatin [Zocor] Med 09/01/20 09:00 Ordered 40 mg PO DAILY hydroCHLOROthiazide Med 09/01/20 09:00 Ordered 12.5 mg PO DAILY lisinopriL [Lisinopril] Med 09/01/20 09:00 Ordered 40 mg PO DAILY Resuscitation Status Routine Resus Stat 08/31/20 14:20 Ordered Medication Orders Acetaminophen (Tylenol) 650 mg PO Q4H PRN PRN Reason: Pain (Mild 1-3)/fever Diltiazem HCl (Dilacor Xr) 240 mg PO DAILY [facility] Hydrochlorothiazide (Hydrochlorothiazide) 12.5 mg PO DAILY [facility] Non-Formulary Medication (Lisinopril [Lisinopril]) 40 mg PO DAILY [facility] Non-Formulary Medication (Calcium Carbonate/Vitamin D3 [Calcium 600mg-D3 400 Unit Sfgl]) 1 cap PO DAILY [facility] Non-Formulary Medication (Simvastatin [Zocor]) 40 mg PO DAILY [facility] Non-Formulary Medication (Potassium Chloride [Potassium Chloride]) 20 meq PO BID [facility] Ondansetron HCl (Zofran Odt) 8 mg PO Q4H PRN PRN Reason: nausea, able to take PO Sertraline HCl (Zoloft) 25 mg PO DAILY [facility] Assessment/Plan Comment:: #. Bilateral hemarthrosis of the knee Status post aspiration of blood #. Coagulopathic Patient was supratherapeutic at the time of his fall INR was 5.9 #. Acute kidney injury Resolved #. Elevated total bilirubin #. Atrial fibrillation Patient was on Coumadin. INR was supratherapeutic. #. Depression Patient has been feeling depressed Plan: Consult physical therapy Consult occupational therapy Hold Coumadin for now Avoid anticoagulants for the next few days to allow healing of the knees. Tylenol for pain control Zoloft 25 mg for depression. Chart reviewed.
[2020-08-31] MEDS: Potassium Chloride 10 MEQ Tab.ER PO SCH (17:18)
[2020-08-31] MEDS: Simvastatin 40 MG Tab PO SCH ×2 (19:54→20:01)
[2020-09-01] MEDS: Hydrochlorothiazide 25 MG Tab PO SCH (09:16)
[2020-09-01] MEDS: Lisinopril 20 MG Tab PO SCH (09:17)
[2020-09-01] MEDS: Sertraline 50 MG Tab PO SCH (09:17)
[2020-09-01] MEDS: Calcium Carbonate/Vitamin D3 1250 MG-200 Unit Tab PO SCH (09:17)
[2020-09-01] MEDS: Potassium Chloride 10 MEQ Tab.ER PO SCH ×2 (09:18→17:34)
[2020-09-01] MEDS: Diltiazem 240 MG Cap.ER PO SCH (09:18)
[2020-09-01] MEDS: Simvastatin 40 MG Tab PO SCH (20:17)
[2020-09-02 06:28] LABS: ANION GAP 14.7 mEq/L (7-13)
[2020-09-02] MEDS: Hydrochlorothiazide 25 MG Tab PO SCH (09:19)
[2020-09-02] MEDS: Calcium Carbonate/Vitamin D3 1250 MG-200 Unit Tab PO SCH (09:20)
[2020-09-02] MEDS: Diltiazem 240 MG Cap.ER PO SCH (09:20)
[2020-09-02] MEDS: Lisinopril 20 MG Tab PO SCH (09:20)
[2020-09-02] MEDS: Sertraline 50 MG Tab PO SCH (09:21)
[2020-09-02] MEDS: Potassium Chloride 10 MEQ Tab.ER PO SCH ×2 (09:21→17:41)
[2020-09-02] MEDS: Acetaminophen 325 MG Tab PO PRN ×2 (11:51→20:39)
[2020-09-02] MEDS: Simvastatin 40 MG Tab PO SCH (20:39)
[2020-09-03] MEDS: Sertraline 50 MG Tab PO SCH (09:03)
[2020-09-03] MEDS: Hydrochlorothiazide 25 MG Tab PO SCH (09:04)
[2020-09-03] MEDS: Calcium Carbonate/Vitamin D3 1250 MG-200 Unit Tab PO SCH (09:04)
[2020-09-03] MEDS: Potassium Chloride 10 MEQ Tab.ER PO SCH ×2 (09:05→18:26)
[2020-09-03] MEDS: Lisinopril 20 MG Tab PO SCH (09:06)
[2020-09-03] MEDS: Diltiazem 240 MG Cap.ER PO SCH (09:07)
[2020-09-03] MEDS: Simvastatin 40 MG Tab PO SCH (20:07)
[2020-09-04] MEDS: Hydrochlorothiazide 25 MG Tab PO SCH (08:29)
[2020-09-04] MEDS: Potassium Chloride 10 MEQ Tab.ER PO SCH ×2 (08:29→17:25)
[2020-09-04] MEDS: Calcium Carbonate/Vitamin D3 1250 MG-200 Unit Tab PO SCH (08:30)
[2020-09-04] MEDS: Sertraline 50 MG Tab PO SCH (08:30)
[2020-09-04] MEDS: Diltiazem 240 MG Cap.ER PO SCH (08:31)
[2020-09-04] MEDS: Lisinopril 20 MG Tab PO SCH (08:31)
[2020-09-04] MEDS: Simvastatin 40 MG Tab PO SCH (21:29)
[2020-09-05] MEDS: Calcium Carbonate/Vitamin D3 1250 MG-200 Unit Tab PO SCH (08:24)
[2020-09-05] MEDS: Diltiazem 240 MG Cap.ER PO SCH (08:24)
[2020-09-05] MEDS: Hydrochlorothiazide 25 MG Tab PO SCH (08:24)
[2020-09-05] MEDS: Lisinopril 20 MG Tab PO SCH (08:25)
[2020-09-05] MEDS: Potassium Chloride 10 MEQ Tab.ER PO SCH ×2 (08:25→17:20)
[2020-09-05] MEDS: Sertraline 50 MG Tab PO SCH (08:26)
--- NOTE | 2020-09-05 10:04 | PCM.PN ---
- General Info Date of Service: 09/05/20 Subjective Update: patient has no new complaint.still having some pain of the knees. intensity has improved Has been able to ambulate - Review of Systems General: Reports: Malaise Pulmonary: Reports: No Symptoms Cardiovascular: Reports: No Symptoms Gastrointestinal: Reports: No Symptoms Musculoskeletal: Reports: No Symptoms - Patient Data Vitals - Most Recent: Last Vital Signs Temp 37.1 C 09/04/20 19:40 Pulse 77 09/04/20 19:40 Resp 18 09/04/20 19:40 BP 144/65 H 09/05/20 08:25 Pulse Ox 97 09/04/20 19:40 Weight - Most Recent: 86.228 kg I&O - Last 24 Hours: Intake & Output 09/04/20 09/05/20 09/05/20 22:59 06:59 14:59 Intake Total 240 Balance 240 Med Orders - Current: Current Medications Acetaminophen (Tylenol) 650 mg PO Q4H PRN PRN Reason: Pain (Mild 1-3)/fever Last Admin: 09/02/20 20:39 Dose: 650 mg Documented by: Calcium Carbonate (Calcium Carbonate/Vitamin D 1250 Mg-200 Unit) 1 tab PO DAILY [facility] Last Admin: 09/05/20 08:24 Dose: 1 tab Documented by: Diltiazem HCl (Dilacor Xr) 240 mg PO DAILY [facility] Last Admin: 09/05/20 08:24 Dose: 240 mg Documented by: Hydrochlorothiazide (Hydrochlorothiazide) 12.5 mg PO DAILY [facility] Last Admin: 09/05/20 08:24 Dose: 12.5 mg Documented by: Lisinopril (Prinivil) 40 mg PO DAILY [facility] Last Admin: 09/05/20 08:25 Dose: 40 mg Documented by: Ondansetron HCl (Zofran Odt) 8 mg PO Q4H PRN PRN Reason: nausea, able to take PO Potassium Chloride (Klor-Con 10) 20 meq PO BIDMEALS [facility] Last Admin: 09/05/20 08:25 Dose: 20 meq Documented by: Sertraline HCl (Zoloft) 25 mg PO DAILY [facility] Last Admin: 09/05/20 08:26 Dose: 25 mg Documented by: Simvastatin (Zocor) 40 mg PO BEDTIME [facility] Last Admin: 09/04/20 21:29 Dose: 40 mg Documented by: - Exam General: Alert, Cooperative HEENT: Pupils Equal, Pupils Reactive, EOMI, Mucous Membr. Moist/[place] Lungs: Clear to Auscultation, Normal Respiratory Effort Cardiovascular: Regular Rate, Regular Rhythm Sepsis Event Note - Evaluation Sepsis Screening Result: No Definite Risk - Focused Exam Vital Signs: Vital Signs BP 09/05/20 08:25 144/65 H - Problem List Review Problem List Initiated/Reviewed/Updated: Yes - My Orders Last 24 Hours: My Active Orders 09/05/20 09:21 POTASSIUM,K [CHEM] Routine - Plan Plan:: #. Bilateral hemarthrosis of the knee Status post aspiration of blood #. Coagulopathic Patient was supratherapeutic at the time of his fall INR was 5.9 #. Acute kidney injury Resolved #. Elevated total bilirubin #. Atrial fibrillation Patient was on Coumadin. INR was supratherapeutic. #. Depression Patient has been feeling depressed Plan: I would proceed to restart the patient on Coumadin Continue physical and occupational therapy
[2020-09-05] MEDS: Simvastatin 40 MG Tab PO SCH (19:59)
[2020-09-06] MEDS: Lisinopril 20 MG Tab PO SCH (08:22)
[2020-09-06] MEDS: Acetaminophen 325 MG Tab PO PRN (08:23)
[2020-09-06] MEDS: Sertraline 50 MG Tab PO SCH (08:23)
[2020-09-06] MEDS: Potassium Chloride 10 MEQ Tab.ER PO SCH ×2 (08:24→17:49)
[2020-09-06] MEDS: Hydrochlorothiazide 25 MG Tab PO SCH (08:24)
[2020-09-06] MEDS: Calcium Carbonate/Vitamin D3 1250 MG-200 Unit Tab PO SCH (08:25)
[2020-09-06] MEDS: Diltiazem 240 MG Cap.ER PO SCH (08:25)
[2020-09-06] MEDS ORDERED: Warfarin 2 MG Tab PO ONE (14:00)
[2020-09-06] MEDS: Simvastatin 40 MG Tab PO SCH (20:05)
[2020-09-07] MEDS: Sertraline 50 MG Tab PO SCH (08:54)
[2020-09-07] MEDS: Diltiazem 240 MG Cap.ER PO SCH (08:54)
[2020-09-07] MEDS: Potassium Chloride 10 MEQ Tab.ER PO SCH ×2 (08:54→17:16)
[2020-09-07] MEDS: Lisinopril 20 MG Tab PO SCH (08:54)
[2020-09-07] MEDS: Hydrochlorothiazide 25 MG Tab PO SCH (08:54)
[2020-09-07] MEDS: Calcium Carbonate/Vitamin D3 1250 MG-200 Unit Tab PO SCH (08:55)
[2020-09-07] MEDS ORDERED: Warfarin 2 MG Tab PO ONE (14:00)
[2020-09-07] MEDS: Simvastatin 40 MG Tab PO SCH (21:14)
[2020-09-08] MEDS: Diltiazem 240 MG Cap.ER PO SCH (09:11)
[2020-09-08] MEDS: Potassium Chloride 10 MEQ Tab.ER PO SCH (09:12)
[2020-09-08] MEDS: Calcium Carbonate/Vitamin D3 1250 MG-200 Unit Tab PO SCH (09:12)
[2020-09-08] MEDS: Lisinopril 20 MG Tab PO SCH (09:12)
[2020-09-08] MEDS: Hydrochlorothiazide 25 MG Tab PO SCH (09:14)
[2020-09-08] MEDS: Sertraline 50 MG Tab PO SCH (09:15)
--- NOTE | 2020-09-08 11:24 | PCM.DCSUM1 ---
Discharge Summary - Hospital Course Free Text/Narrative:: history of atrial fibrillation has been on Coumadin Admitted to acute care with bilateral hemarthrosis of the knee, underwent aspiration of blood Transferred toswing bed for further physical and o #. Coagulopathic Patient was supratherapeutic at the time of his fall Coumadin was on hold then reintroduced Follow INR closely #. Acute kidney injury Resolved #. hypokalemia was replaced Continue supplement Recheck electrolytes and renal function periodically #. Depression Patient has been feeling depressed started Zoloft Improved with physical and occupational therapy Diagnosis: Stroke: No - Discharge Data Discharge Date: 09/08/20 Discharge Disposition: Home, Self-Care 01 Condition: Good - Referral to Home Health Primary Care Physician: Renate Rios NP - Patient Summary/Data Consults: Consultations 08/31/20 14:20 OT Evaluation and Treatment [CONS] Routine PT Evaluation and Treatment [CONS] Routine - Patient Instructions Diet: Heart Healthy Diet Activity: As Tolerated - Discharge Plan *PRESCRIPTION DRUG MONITORING PROGRAM REVIEWED*: Not Applicable *COPY OF PRESCRIPTION DRUG MONITORING REPORT IN PATIENT JACKI: Not Applicable Prescriptions/Med Rec: Sertraline [Zoloft] 25 mg PO DAILY #30 tablet Home Medications: Home Meds Diltiazem [Dilacor XR] 240 mg PO DAILY 08/26/20 [History] Potassium Chloride 20 meq PO BID 08/26/20 [History] Simvastatin [Zocor] 40 mg PO DAILY 08/26/20 [History] Warfarin [Coumadin] 3 mg PO .THREEDAYSPERWEEK 08/26/20 [History] hydroCHLOROthiazide [Hydrochlorothiazide] 12.5 mg PO DAILY 08/26/20 [History] lisinopriL [Lisinopril] 40 mg PO DAILY 08/26/20 [History] Calcium Carbonate/Vitamin D3 [Calcium 600Mg-D3 400 Unit Sfgl] 1 cap PO DAILY 08/31/20 [History] Warfarin [Coumadin] 1.5 mg PO .FOURDAYSPERWEEK 09/05/20 [History] Sertraline [Zoloft] 25 mg PO DAILY #30 tablet 09/08/20 [Rx] Oxygen Therapy Mode: Room Air Patient Handouts: Exercises To Do While Sitting, Weakness, [id number], How to Use a Walker - Discharge Summary/Plan Comment DC Time >30 min.: No - General Info Date of Service: 09/08/20 Subjective Update: Has been able to ambulate Functional Status: Reports: Pain Controlled, Tolerating Diet - Review of Systems General: Denies: Fever, Weakness Pulmonary: Denies: Shortness of Breath Cardiovascular: Denies: Chest Pain Gastrointestinal: Denies: Abdominal Pain Neurological: Denies: Confusion - Patient Data Vitals - Most Recent: Last Vital Signs Temp 98.9 F 09/08/20 08:00 Pulse 71 09/08/20 08:00 Resp 17 09/08/20 08:00 BP 141/74 H 09/08/20 09:12 Pulse Ox 96 09/08/20 08:00 Weight - Most Recent: 189 lb 3.2 oz I&O - Last 24 hours: Intake & Output 09/07/20 09/08/20 09/08/20 22:59 06:59 14:59 Intake Total 200 600 240 Balance 200 600 240 Lab Results - Last 24 hrs: Laboratory Results - last 24 hr 09/08/20 Range/Units 05:58 PT 15.3 H (9.0-12.0) SEC INR 1.6 H (0.9-1.2) Med Orders - Current: Current Medications Acetaminophen (Tylenol) 650 mg PO Q4H PRN PRN Reason: Pain (Mild 1-3)/fever Last Admin: 09/06/20 08:23 Dose: 650 mg Documented by: Calcium Carbonate (Calcium Carbonate/Vitamin D 1250 Mg-200 Unit) 1 tab PO DAILY [facility] Last Admin: 09/08/20 09:12 Dose: 1 tab Documented by: Diltiazem HCl (Dilacor Xr) 240 mg PO DAILY [facility] Last Admin: 09/08/20 09:11 Dose: 240 mg Documented by: Hydrochlorothiazide (Hydrochlorothiazide) 12.5 mg PO DAILY [facility] Last Admin: 09/08/20 09:14 Dose: 12.5 mg Documented by: Lisinopril (Prinivil) 40 mg PO DAILY [facility] Last Admin: 09/08/20 09:12 Dose: 40 mg Documented by: Ondansetron HCl (Zofran Odt) 8 mg PO Q4H PRN PRN Reason: nausea, able to take PO Potassium Chloride (Klor-Con 10) 20 meq PO BIDMEALS [facility] Last Admin: 09/08/20 09:12 Dose: 20 meq Documented by: Sertraline HCl (Zoloft) 25 mg PO DAILY [facility] Last Admin: 09/08/20 09:15 Dose: 25 mg Documented by: Simvastatin (Zocor) 40 mg PO BEDTIME [facility] Last Admin: 09/07/20 21:14 Dose: 40 mg Documented by: Warfarin Sodium (Pharmacy To Dose - Warfarin) 1 dose .XX ASDIRECTED [facility] Warfarin Sodium (Coumadin) 5 mg PO ONETIME ONE Stop: 09/08/20 14:01 Discontinued Medications Warfarin Sodium (Coumadin) 3 mg PO ONETIME ONE Stop: 09/05/20 14:01 Last Admin: 09/05/20 14:09 Dose: 3 mg Documented by: Warfarin Sodium (Coumadin) 4 mg PO ONETIME ONE Stop: 09/06/20 14:01 Last Admin: 09/06/20 13:59 Dose: 4 mg Documented by: Warfarin Sodium (Coumadin) 4 mg PO ONETIME ONE Stop: 09/07/20 14:01 Last Admin: 09/07/20 14:37 Dose: 4 mg Documented by: - Exam Quality Assessment: Reports: Supplemental Oxygen General: Reports: Alert, Oriented Lungs: Reports: Clear to Auscultation, Normal Respiratory Effort Cardiovascular: Reports: Regular Rate, Regular Rhythm GI/Abdominal Exam: Normal Bowel Sounds, Soft, Non-Tender Extremities: No Pedal Edema
[2020-09-08] MEDS ORDERED: Warfarin 5 MG Tab PO ONE (14:00)
== END 2020-09-08 13:20 | disposition home or self-care (01) | DRG 948 ==
LOC: DL.MS 13:13
PROVIDERS: ADMIT Hospitalist; ATTEND Internal Medicine
DX: R53.81 Other malaise (principal); N17.9 Acute kidney failure, unspecified; D68.9 Coagulation defect, unspecified; M25.062 Hemarthrosis, left knee; M25.061 Hemarthrosis, right knee; E87.6 Hypokalemia; F32.9 Major depressive disorder, single episode, unspecified; R73.03 Prediabetes; H54.7 Unspecified visual loss; E78.00 Pure hypercholesterolemia, unspecified; I11.0 Hypertensive heart disease with heart failure; I50.9 Heart failure, unspecified; Z79.01 Long term (current) use of anticoagulants; Z85.46 Personal history of malignant neoplasm of prostate; Z79.899 Other long term (current) drug therapy; Z87.891 Personal history of nicotine dependence
CPT/HCPCS: 36415; 80048; 84132; 85027; 85610; 97116-GP; 97162-GP; 97166-GO; 97530-GO; A9270-GY

== ENCOUNTER 2020-11-17 15:31 | Emergency (ER) | payer MEDICARE, OTHER ==
[2020-11-17] MEDS ORDERED: Furosemide 40 MG Tab PO ONE (15:32)
--- NOTE | 2020-11-17 16:21 | CT ---
EXAMINATION: Head wo Cont SEX: Male AGE: 85 years CLINICAL HISTORY: 85-year-old hypertensive 196 pound male on Coumadin who has had several falls. Rule out acute intracranial bleed. 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 r/o head bleed post-fall. Scan technique: Volume acquisition of data emergency unenhanced CT scan of the head and brain obtained with the patient lying supine on the Siemens multi slice scanner [place], [place]. All data archived in the PACS system for storage, reformatting axial/sagittal/coronal planes and study. June 2017. Interpretation: 1. Arteriovascular calcifications elim ira of Hernández base of the skull. Physiologic pineal/symmetric choroid plexus calcifications. 2. Uniformly thick bony calvarium. Symmetric clear pneumatization of the paranasal and mastoid sinuses. 3. Extra cranial scalp hematoma, posteriorly, over the parieto-occipital convexity, on the right. No underlying skull fracture, brain contusion (underlying or contrecoup), or abnormal extracerebral/intracranial epidural/subdural hematoma. 4. Extensive (increased) evidence of cerebral cortical atrophy with underlying mirror-image prominence of the ventricular system. Scattered areas of decreased attenuation throughout the periventricular white matter both hemispheres characteristic of multi-infarct ischemic disease (particularly severe involvement of the parietal and occipital lobes). 5. No new supratentorial or posterior fossa mass lesion. 6. No new signs of acute intracerebral, intraventricular or subarachnoid bleed. 7. Cerebellum and brainstem unremarkable except for relative increased atrophy unchanged since June 2017.
[2020-11-17 16:31] LABS: PTT,PARTIAL THROMBOPLSTIN TIME 31.5 SEC (22.0-34.0)
[2020-11-17 16:35] LABS: ANION GAP 15.7 mEq/L (7-13); CHLORIDE,CL 105 mmol/L (98-107); SODIUM,NA 140 mmol/L (136-145)
--- NOTE | 2020-11-17 16:38 | EDM.PDOC ---
ED [facility] GENERAL MEDICAL PROBLEM - General Chief Complaint: Trauma Stated Complaint: TRAUMA Time Seen by Provider: 11/17/20 15:35 Source of Information: Reports: Patient, Family (), Old Records, RN, RN Notes Reviewed History Limitations: Reports: No Limitations - History of Present Illness INITIAL COMMENTS - FREE TEXT/NARRATIVE: Patient presents to the ED via personal vehicle with for complaints of fall at home. The patient reports a history of atrial fibrillation on chronic anticoagulation with Coumadin, hypertension, prediabetes, and history of prostate cancer. He states the fall occurred approximately 45 minutes prior to his arrival to this facility while he was standing up from a chair in his home; he tipped over onto his left side and struck his head on a rocking chair nearby. He remembers the episode and did not lose consciousness. The patient reports pain to his left occiput and notes a "...bump" to his scalp in this location. He denies any acute injuries to his trunk or extremities; the patient does report chronic pain to bilateral knees. Trauma Notes: As above in HPI Arrival Time: 1533 C-Collar Status: Not placed upon arrival to ED; C-Spine clear via physical exam at 1535 Spinal Board/Immobilization Status: Not placed upon arrival to ED; Patient upright and ambulatory GCS on Arrival: 15 Airway: Patent nasal and oral airways, conversant with normal speech, no evidence of airway obstruction. Breathing: Spontaneous respirations, symmetric chest rise and fall, non-labored breathing. Circulation: Heart rate and rhythm irregularly, irregular in the 70s. Heart sounds non-muffled, no murmur. Intact distal pulses and capillary refill x all 4 distal extremities. No central, peripheral, or perioral cyanosis. Deformity/Disability: Head normocephalic with hematoma to right parietal- occipital region; superficial abrasion noted. C-spine cleared by history and exam. Chest non-tender. Abdomen soft, non-tender, benign to exam. Pelvis stable. Upper and lower extremities non-tender, atraumatic. No active bleeding, no long bone deformities. No acute motor or sensory deficits. CN II-XII intact. GCS 15 on arrival. Exposure: Skin cool and dry. Per , the patient was admitted to [facility] in [place] in August of 2020 related to falls and was discharged to swing bed at this facility following a non-complicated admission. He was instructed by PT during swing bed to utilize a walker with ambulation and walk daily. He neither utilizes a walker or walks daily, as he continues to experience chronic pain to his knees and finds his walker cumbersome. - Related Data Allergies Allergy/AdvReac Type Severity Reaction Status Date / Time No Known Allergies Allergy Verified 11/17/20 15:41 Home Meds: Home Meds Diltiazem [Dilacor XR] 240 mg PO DAILY 08/26/20 [History] Potassium Chloride 20 meq PO BID 08/26/20 [History] Simvastatin [Zocor] 40 mg PO DAILY 08/26/20 [History] Warfarin [Coumadin] 3 mg PO .THREEDAYSPERWEEK 08/26/20 [History] hydroCHLOROthiazide [Hydrochlorothiazide] 12.5 mg PO DAILY 08/26/20 [History] lisinopriL [Lisinopril] 40 mg PO DAILY 08/26/20 [History] Calcium Carbonate/Vitamin D3 [Calcium 600Mg-D3 400 Unit Sfgl] 1 cap PO DAILY 08/31/20 [History] Warfarin [Coumadin] 1.5 mg PO .FOURDAYSPERWEEK 09/05/20 [History] Sertraline [Zoloft] 25 mg PO DAILY #30 tablet 09/08/20 [Rx] Past Medical History HEENT History: Reports: Cataract, Impaired Vision, Macular Degeneration Cardiovascular History: Reports: Afib, Heart Failure, High Cholesterol, Hypertension Genitourinary History: Reports: Prostate Disorder Psychiatric History: Reports: Depression - Infectious Disease History Infectious Disease History: Reports: Chicken Pox, Mumps - Past Surgical History HEENT Surgical History: Reports: Cataract Surgery Social & Family History - Family History Family Medical History: No Pertinent Family History - Caffeine Use Caffeine Use: Reports: Coffee Review of Systems - Review of Systems Review Of Systems: Comprehensive ROS is negative, except as noted in HPI. ED EXAM, GENERAL - Physical Exam Exam: See Below Free Text/Narrative:: Secondary Trauma Survey as follows Exam Limited By: No Limitations General Appearance: Alert, No Apparent Distress Eye Exam: Bilateral Eye: EOMI, Normal Inspection, PERRL (3mm) Ears: Normal External Exam, Normal Canal, Hearing Grossly Normal, Normal TMs Ear Exam: Bilateral Ear: Auricle Normal, Canal Normal, TM normal Nose: Normal Inspection, Normal Mucosa, No Blood Throat/Mouth: Normal Voice, No Airway Compromise. No: Normal Oropharynx (Dry mucouc membranes) Head: Normocephalic, Other (Hematoma to right parietal-occipital region with superficial abrasion noted to area) Neck: Normal Inspection, Supple, Non-Tender, Full Range of Motion, Other (C- spine cleared via physical exam; No cervical-point tenderness or pain with flexion/extension/rotation) Respiratory/Chest: No Respiratory Distress, Lungs Clear, Normal Breath Sounds, No Accessory Muscle Use, Chest Non-Tender Cardiovascular: Normal Peripheral Pulses, No Gallop, No JVD, No Murmur, No Rub, Irregularly Irregular, Other (RLE edema) Peripheral Pulses: 2+: Radial (L), Radial (R), Dorsalis Pedis (L), Dorsalis Pedis (R) GI/Abdominal: Normal Bowel Sounds, Soft, Non-Tender, No Organomegaly, No Dis tention, No Abnormal Bruit, No Mass (Male) Exam: Deferred Rectal (Males) Exam: Deferred Back Exam: Normal Inspection, Full Range of Motion Extremities: Normal Capillary Refill, Pedal Edema (+1 pitting, RLE; Trace LLE), Limited Range of Motion (To BLE; Patient to be using a FWW for ambulation but refuses) Neurological: Alert, Oriented, CN II-XII Intact, Normal Cognition, Normal Gait, Normal Reflexes, No Motor/Sensory Deficits Psychiatric: Normal Affect, Normal Mood Skin Exam: Warm, Dry, Normal Color, No Rash, Wound/Incision (Superficial abrasion to L parietal scalp; No active bleeding) Lymphatic: No Adenopathy #1 Interpretation EKG Date: 11/17/20 Time: 16:03 Rhythm: A-Fib Rate (Beats/Min): 69 [place]: Normal P-Wave: Absent QRS: Normal ST-T: Normal QT: Normal Comparison: No Change EKG Interpretation Comments: Atrial fibrillation; No evidence of acute myocardial ischemia Course - Orders/Labs/Meds Labs: Laboratory Tests 11/17/20 11/17/20 11/17/20 Range/Units 16:07 16:07 16:07 WBC 5.5 (5.0-10.0) 10^3/uL RBC 4.46 L (4.6-6.2) 10^6/uL Hgb 13.4 L (14.0-18.0) g/dL Hct 39.4 L (40.0-54.0) % MCV 88.3 (80-100) fL MCH 30.0 (27.0-34.0) pg MCHC 34.0 (33.0-35.0) g/dL Plt Count 196 (150-450) 10^3/uL Neut % (Auto) 82.5 H (42.2-75.2) % Lymph % (Auto) 5.2 L (20.5-50.1) % [place] % (Auto) 11.0 H (2-8) % Eos % (Auto) 0.9 L (1.0-3.0) % Baso % (Auto) 0.4 (0.0-1.0) % PT 24.0 H D (9.0-12.0) SEC INR 2.4 H (0.9-1.2) APTT 31.5 (22.0-34.0) SEC D-Dimer, Quantitative (0-400) ng/mL Sodium 140 (136-145) mmol/L Potassium 3.7 (3.5-5.1) mmol/L Chloride 105 (98-107) mmol/L Carbon Dioxide 23 (21-32) mmol/L Anion Gap 15.7 H (7-13) mEq/L BUN 33 H (7-18) mg/dL Creatinine 1.23 (0.70-1.30) mg/dL Est Cr Clr Drug Dosing 46.99 mL/min Estimated GFR (MDRD) 56 BUN/Creatinine Ratio 26.8 (No establ ref range) Glucose 109 H (70-99) mg/dL Lactic Acid (0.4-2.0) mmol/L Calcium 8.3 L (8.5-10.1) mg/dL Magnesium 1.9 (1.8-2.4) mg/dL Total Bilirubin 0.8 (0.2-1.0) mg/dL AST 21 (15-37) U/L ALT 20 (16-63) U/L Alkaline Phosphatase 88 (46-116) U/L Troponin I 0.027 (0.000-0.056) ng/mL B-Natriuretic Peptide 481 H (0-100) pg/ml Total Protein 6.2 L (6.4-8.2) g/dL Albumin 2.8 L (3.4-5.0) g/dL Globulin 3.4 Albumin/Globulin Ratio 0.82 Urine Color (YELLOW) Urine Appearance (CLEAR) Urine pH (5.0-9.0) Ur Specific Peel (1.005-1.030) Urine Protein (NEGATIVE) Urine Glucose (UA) (NEGATIVE) Urine Ketones (NEGATIVE) Urine Occult Blood (NEGATIVE) Urine Nitrite (NEGATIVE) Urine Bilirubin (NEGATIVE) Urine Urobilinogen (0.2-1.0) mg/dL Ur Leukocyte Esterase (NEGATIVE) Urine RBC /HPF Urine WBC (0-5/HPF) /HPF Ur Epithelial Cells (NOT SEEN) /HPF Urine Bacteria (0-FEW/HPF) /HPF Urine Mucus (NOT SEEN) /LPF Urine Opiates Screen (NEGATIVE) Ur Oxycodone Screen (NEGATIVE) Urine Methadone Screen (NEGATIVE) Ur Barbiturates Screen (NEGATIVE) U Tricyclic Antidepress (NEGATIVE) Ur Phencyclidine Scrn (NEGATIVE) Ur Amphetamine Screen (NEGATIVE) U Methamphetamines Scrn (NEGATIVE) Urine MDMA Screen (NEGATIVE) U Benzodiazepines Scrn (NEGATIVE) Urine Cocaine Screen (NEGATIVE) U Marijuana (THC) Screen (NEGATIVE) Ethyl Alcohol < 3 (0) mg/dL 11/17/20 11/17/20 11/17/20 Range/Units 16:07 16:07 17:40 WBC (5.0-10.0) 10^3/uL RBC (4.6-6.2) 10^6/uL Hgb (14.0-18.0) g/dL Hct (40.0-54.0) % MCV (80-100) fL MCH (27.0-34.0) pg MCHC (33.0-35.0) g/dL Plt Count (150-450) 10^3/uL Neut % (Auto) (42.2-75.2) % Lymph % (Auto) (20.5-50.1) % [place] % (Auto) (2-8) % Eos % (Auto) (1.0-3.0) % Baso % (Auto) (0.0-1.0) % PT (9.0-12.0) SEC INR (0.9-1.2) APTT (22.0-34.0) SEC D-Dimer, Quantitative 675 H (0-400) ng/mL Sodium (136-145) mmol/L Potassium (3.5-5.1) mmol/L Chloride (98-107) mmol/L Carbon Dioxide (21-32) mmol/L Anion Gap (7-13) mEq/L BUN (7-18) mg/dL Creatinine (0.70-1.30) mg/dL Est Cr Clr Drug Dosing mL/min Estimated GFR (MDRD) BUN/Creatinine Ratio (No establ ref range) Glucose (70-99) mg/dL Lactic Acid 1.3 (0.4-2.0) mmol/L Calcium (8.5-10.1) mg/dL Magnesium (1.8-2.4) mg/dL Total Bilirubin (0.2-1.0) mg/dL AST (15-37) U/L ALT (16-63) U/L Alkaline Phosphatase (46-116) U/L Troponin I (0.000-0.056) ng/mL B-Natriuretic Peptide (0-100) pg/ml Total Protein (6.4-8.2) g/dL Albumin (3.4-5.0) g/dL Globulin Albumin/Globulin Ratio Urine Color (YELLOW) Urine Appearance (CLEAR) Urine pH (5.0-9.0) Ur Specific Peel (1.005-1.030) Urine Protein (NEGATIVE) Urine Glucose (UA) (NEGATIVE) Urine Ketones (NEGATIVE) Urine Occult Blood (NEGATIVE) Urine Nitrite (NEGATIVE) Urine Bilirubin (NEGATIVE) Urine Urobilinogen (0.2-1.0) mg/dL Ur Leukocyte Esterase (NEGATIVE) Urine RBC /HPF Urine WBC (0-5/HPF) /HPF Ur Epithelial Cells (NOT SEEN) /HPF Urine Bacteria (0-FEW/HPF) /HPF Urine Mucus (NOT SEEN) /LPF Urine Opiates Screen Negative (NEGATIVE) Ur Oxycodone Screen Negative (NEGATIVE) Urine Methadone Screen Negative (NEGATIVE) Ur Barbiturates Screen Negative (NEGATIVE) U Tricyclic Antidepress Negative (NEGATIVE) Ur Phencyclidine Scrn Negative (NEGATIVE) Ur Amphetamine Screen Negative (NEGATIVE) U Methamphetamines Scrn Negative (NEGATIVE) Urine MDMA Screen Negative (NEGATIVE) U Benzodiazepines Scrn Negative (NEGATIVE) Urine Cocaine Screen Negative (NEGATIVE) U Marijuana (THC) Screen Negative (NEGATIVE) Ethyl Alcohol (0) mg/dL 11/17/20 Range/Units 17:40 WBC (5.0-10.0) 10^3/uL RBC (4.6-6.2) 10^6/uL Hgb (14.0-18.0) g/dL Hct (40.0-54.0) % MCV (80-100) fL MCH (27.0-34.0) pg MCHC (33.0-35.0) g/dL Plt Count (150-450) 10^3/uL Neut % (Auto) (42.2-75.2) % Lymph % (Auto) (20.5-50.1) % [place] % (Auto) (2-8) % Eos % (Auto) (1.0-3.0) % Baso % (Auto) (0.0-1.0) % PT (9.0-12.0) SEC INR (0.9-1.2) APTT (22.0-34.0) SEC D-Dimer, Quantitative (0-400) ng/mL Sodium (136-145) mmol/L Potassium (3.5-5.1) mmol/L Chloride (98-107) mmol/L Carbon Dioxide (21-32) mmol/L Anion Gap (7-13) mEq/L BUN (7-18) mg/dL Creatinine (0.70-1.30) mg/dL Est Cr Clr Drug Dosing mL/min Estimated GFR (MDRD) BUN/Creatinine Ratio (No establ ref range) Glucose (70-99) mg/dL Lactic Acid (0.4-2.0) mmol/L Calcium (8.5-10.1) mg/dL Magnesium (1.8-2.4) mg/dL Total Bilirubin (0.2-1.0) mg/dL AST (15-37) U/L ALT (16-63) U/L Alkaline Phosphatase (46-116) U/L Troponin I (0.000-0.056) ng/mL B-Natriuretic Peptide (0-100) pg/ml Total Protein (6.4-8.2) g/dL Albumin (3.4-5.0) g/dL Globulin Albumin/Globulin Ratio Urine Color Yellow (YELLOW) Urine Appearance Clear (CLEAR) Urine pH 5.0 (5.0-9.0) Ur Specific [place] >= 1.030 (1.005-1.030) Urine Protein Negative (NEGATIVE) Urine Glucose (UA) Negative (NEGATIVE) Urine Ketones Negative (NEGATIVE) Urine Occult Blood Trace-lysed H (NEGATIVE) Urine Nitrite Negative (NEGATIVE) Urine Bilirubin Negative (NEGATIVE) Urine Urobilinogen 0.2 (0.2-1.0) mg/dL Ur Leukocyte Esterase Negative (NEGATIVE) Urine RBC 0-5 /HPF Urine WBC 0-5 (0-5/HPF) /HPF Ur Epithelial Cells Rare (NOT SEEN) /HPF Urine Bacteria Rare (0-FEW/HPF) /HPF Urine Mucus Few H (NOT SEEN) /LPF Urine Opiates Screen (NEGATIVE) Ur Oxycodone Screen (NEGATIVE) Urine Methadone Screen (NEGATIVE) Ur Barbiturates Screen (NEGATIVE) U Tricyclic Antidepress (NEGATIVE) Ur Phencyclidine Scrn (NEGATIVE) Ur Amphetamine Screen (NEGATIVE) U Methamphetamines Scrn (NEGATIVE) Urine MDMA Screen (NEGATIVE) U Benzodiazepines Scrn (NEGATIVE) Urine Cocaine Screen (NEGATIVE) U Marijuana (THC) Screen (NEGATIVE) Ethyl Alcohol (0) mg/dL Meds: Medications Discontinued Medications Generic Name Dose Route Start Last Admin Trade Name Freq PRN Reason Stop Dose Admin Furosemide 20 mg 11/17/20 18:44 11/17/20 19:14 Furosemide 20 Mg Tab PO 11/17/20 18:45 20 mg ONETIME ONE Administration Furosemide Confirm 11/17/20 19:27 11/17/20 19:41 Furosemide 40 Mg Tab Administered 11/17/20 19:28 Not Given Dose 40 mg .ROUTE .STK-MED ONE Furosemide 40 mg 11/17/20 15:32 Furosemide 40 Mg Tab PO 11/17/20 15:33 .STK-MED ONE Potassium Chloride 20 meq 11/17/20 18:45 11/17/20 19:12 Potassium Chloride 10 Meq Tab.Er PO 11/17/20 18:46 20 meq ONETIME ONE Administration - Re-Assessments/Exams Free Text/Narrative Re-Assessment/Exam: 11/17/20 CT head unremarkable for acute processes; no evidence of bleed. Troponin WNL. EKG reveals AFib which is chronic for the patient. Coags appropriate with INR 2.4. D-dimer elevated at 642; given RLE edema, will obtain venous doppler to r/o DVT Tox screen and ETOH negative. UA unremarkable. CMP fairly benign; kidney function, liver function, and electrolytes appropriate. CBC fairly benign; mild anemia appreciated with Hgb 13.4. GCS at one hour (1645): 15 Venous doppler negative for DVT. BNP elevated at 480. Discussed findings of examination, lab work, and imaging with patient and . Will treat edema to RLE with extra Lasix dose today and tomorrow with patient instructed to follow up with primary care provider tomorrow morning for reevaluation and referral to PT. Patient instructed to ambulate with walker, as previously prescribed. Patient and verbalized understanding and agreement with the plan of care. GCS at discharge (1932): 15 Departure - Departure Time of Disposition: 19:32 Disposition: Home, Self-Care 01 Condition: Good Clinical Impression: Fall from ground level, Elevated brain natriuretic peptide (BNP) level Left parietal scalp hematoma Qualifiers: Encounter type: initial encounter Qualified Code(s): S00.03XA - Contusion of scalp, initial encounter Head trauma Qualifiers: Encounter type: initial encounter Qualified Code(s): S09.90XA - Unspecified injury of head, initial encounter Fluid overload Qualifiers: Hypervolemia type: unspecified Qualified Code(s): E87.70 - Fluid overload, unspecified - Discharge Information *PRESCRIPTION DRUG MONITORING PROGRAM REVIEWED*: Not Applicable *COPY OF PRESCRIPTION DRUG MONITORING REPORT IN PATIENT JACKI: Not Applicable Instructions: Head Injury, Adult, [id number], Fall Prevention in the Home, Adult Referrals: Renate Rios NP [Primary Care Provider] - Forms: ED Department Discharge Additional Instructions: Rx: Lasix 1.) Follow up with your primary care provider tomorrow regarding today's visit. 2.) Utilize a walker with ambulation to avoid falls. 3.) Return to the emergency department with any changes in mentation, pupil changes, vision changes, projectile vomiting, or seizure-like activity. 4.) Continue on previous medications, as prescribed.
--- NOTE | 2020-11-17 18:12 | US ---
PROCEDURE INFORMATION: Exam: US Duplex Right Lower Extremity Veins, Limited Exam date and time: 11/17/2020 5:54 PM Age: 85 years old Clinical indication: Pain; Edema, localized; Lower extremity, right; Leg, lower; Additional info: Rle edema +2; D-dimer 600+ TECHNIQUE: Imaging protocol: Real-time Duplex ultrasound of the Right Lower Extremity with 2-D menon scale, color Doppler flow and spectral waveform analysis with image documentation. Limited exam was focused on the right lower extremity veins. COMPARISON: CT Knee wo Cont Bi, Knee wo Cont Bi 08/26/2020 9:29 PM FINDINGS: Right deep veins: Unremarkable. The common femoral, femoral, proximal profunda femoral and popliteal veins are patent without thrombus. Normal Doppler waveforms. Normal compressibility and/or augmentation response. Right superficial veins: Unremarkable. Saphenofemoral junction is patent without thrombus. Soft tissues: Unremarkable. IMPRESSION: No evidence of right deep vein thrombosis.
[2020-11-17] MEDS ORDERED: Furosemide 20 MG Tab PO ONE (18:44)
[2020-11-17] MEDS ORDERED: Potassium Chloride 10 MEQ Tab.ER PO ONE (18:45)
[2020-11-17] MEDS ORDERED: Furosemide 40 MG Tab ONE (19:27)
== END 2020-11-17 19:32 | disposition home or self-care (01) ==
LOC: DL.ED 15:31
DX: S00.03XA Contusion of scalp, initial encounter (principal); R79.89 Other specified abnormal findings of blood chemistry; E87.70 Fluid overload, unspecified; I11.0 Hypertensive heart disease with heart failure; I50.9 Heart failure, unspecified; I48.91 Unspecified atrial fibrillation; E78.00 Pure hypercholesterolemia, unspecified; Z79.01 Long term (current) use of anticoagulants; Z79.899 Other long term (current) drug therapy; W01.198A Fall on same level from slipping, tripping and stumbling with subsequent striking against other object, initial encounter; Y92.009 Unspecified place in unspecified non-institutional (private) residence as the place of occurrence of the external cause
CPT/HCPCS: 36415; 70450; 80053; 80305-QW; 80307; 81001; 83605; 83735; 83880; 84484; 85025; 85379; 85610; 85730; 93005; 93010; 93971; 99284; 99284-25; A9270-GY

== ENCOUNTER 2021-04-27 12:11 | Emergency (ER) | payer MEDICARE, OTHER ==
--- NOTE | 2021-04-27 12:41 | EDM.PDOC ---
ED HPI GENERAL MEDICAL PROBLEM - General Chief Complaint: Upper Extremity Injury/Pain Stated Complaint: FELL ON SIDEWALK OUTSIDE HOME Time Seen by Provider: 04/27/21 12:40 Source of Information: Reports: Patient, Family (), Old Records, RN, RN Notes Reviewed History Limitations: Reports: No Limitations - History of Present Illness INITIAL COMMENTS - FREE TEXT/NARRATIVE: Pt presents to ER from home by POV with c/o left elbow and upper arm pain sustained from a ground level fall today. Pt denies hitting his head, LOC, or neck pain. He reports his only injury is to the left arm. Pt rates the pain 01/05. He does not recall when his last Tetanus vaccine was. Records review reveals the last Tetanus vaccine was documented in 2006. Pt denies any symptoms preceding his fall such as chest pain, lightheadedness, dizziness, or shortness of breath. Onset: Today, Sudden Duration: Constant Location: Reports: Upper Extremity, Left Quality: Reports: Ache Severity: Moderate Improves with: Reports: None Worsens with: Reports: Movement Associated Symptoms: Reports: No Other Symptoms - Related Data Allergies Allergy/AdvReac Type Severity Reaction Status Date / Time No Known Allergies Allergy Verified 11/17/20 15:41 Home Meds: Home Meds Diltiazem [Dilacor XR] 240 mg PO DAILY 08/26/20 [History] Potassium Chloride 20 meq PO BID 08/26/20 [History] Simvastatin [Zocor] 40 mg PO DAILY 08/26/20 [History] Warfarin [Coumadin] 3 mg PO .THREEDAYSPERWEEK 08/26/20 [History] hydroCHLOROthiazide [Hydrochlorothiazide] 12.5 mg PO DAILY 08/26/20 [History] lisinopriL [Lisinopril] 40 mg PO DAILY 08/26/20 [History] Calcium Carbonate/Vitamin D3 [Calcium 600Mg-D3 400 Unit Sfgl] 1 cap PO DAILY 08/31/20 [History] Warfarin [Coumadin] 1.5 mg PO .FOURDAYSPERWEEK 09/05/20 [History] Sertraline [Zoloft] 25 mg PO DAILY #30 tablet 09/08/20 [Rx] Past Medical History HEENT History: Reports: Cataract, Impaired Vision, Macular Degeneration Cardiovascular History: Reports: Afib, Heart Failure, High Cholesterol, Hypertension Genitourinary History: Reports: Prostate Disorder Psychiatric History: Reports: Depression - Infectious Disease History Infectious Disease History: Reports: Chicken Pox, Mumps - Past Surgical History HEENT Surgical History: Reports: Cataract Surgery Social & Family History - Family History Family Medical History: No Pertinent Family History - Caffeine Use Caffeine Use: Reports: Coffee - Living Situation & Occupation Living situation: Reports: , with Spouse Occupation: Retired Review of Systems - Review of Systems Review Of Systems: Comprehensive ROS is negative, except as noted in HPI. ED EXAM, GENERAL - Physical Exam Exam: See Below Exam Limited By: No Limitations General Appearance: Alert, WD/WN, No Apparent Distress Eye Exam: Bilateral Eye: EOMI, Normal Inspection, PERRL Ears: Normal External Exam, Hearing Grossly Normal Nose: Normal Inspection, No Blood Throat/Mouth: Normal Inspection, Other (Atraumatic) Head: Atraumatic, Normocephalic Neck: Normal Inspection, Non-Tender, Full Range of Motion Respiratory/Chest: No Respiratory Distress, Lungs Clear, Chest Non-Tender Cardiovascular: Irregularly Irregular GI/Abdominal: Normal Bowel Sounds, Non-Tender Back Exam: Normal Inspection, Full Range of Motion. No: Vertebral Tenderness Extremities: Normal Capillary Refill, Arm Pain (Superficial abrasions and skin tears to left elbow and upper arm, no active bleeding, no FB), Limited Range of Motion (Left elbow due to pain.). No: Increased Warmth, Mottled, Pallor Neurological: Alert, Oriented, No Motor/Sensory Deficits Psychiatric: Normal Mood Skin Exam: Warm, Dry Course - Orders/Labs/Meds Orders: Active Orders 24 hr Category Date Time Status Vaccine to be Administered/Admin Charge [RC] ASDIRECTED Care 04/27/21 12:57 Active Wound Care [RC] ONETIME Care 04/27/21 12:57 Active Meds: Medications Discontinued Medications Generic Name Dose Route Start Last Admin Trade Name Freq PRN Reason Stop Dose Admin Bacitracin 1 dose 04/27/21 12:57 Bacitracin Oint 1 Gm U/D Packet TOP 04/27/21 12:58 ONETIME ONE Diphtheria/Tetanus/Acell Pertussis 0.5 ml 04/27/21 12:57 Diphtheria,Pertussis(Acell),Tetanus Vaccine 0.5 Ml Syringe IM 04/27/21 12:58 .ONCE ONE - Radiology Interpretation Free Text/Narrative:: [facility] Final Radiology Report Call: [phone] assistance Online chat: [email or web address] Name: RK HO Age: 85Years M Date: 04/27/2021 SSN: -- : [id number] Study: CR ELBOW MIN 3V LT Requesting Physician: JAGDISH PINO Images: 3 Addl Studies: Provided Clinical History: fall landed on left elbow Contrast: Contrast Medium: Contrast Amount: Contrast Method: CONFIDENTIALITY STATEMENT This report is intended only for use by the referring physician, and only in accordance with law. If you received this in error, call [phone]. Page 1 of 1 PROCEDURE INFORMATION: Exam: XR Left Elbow Exam date and time: 04/27/2021 12:39 PM Age: 85 years old Clinical indication: Injury or trauma; Fall; Blunt trauma (contusions or hematomas); Elbow; Left; Additional info: Fall landed on left elbow TECHNIQUE: Imaging protocol: XR Left elbow. Views: 3 or more views. COMPARISON: No relevant prior studies available. FINDINGS: Bones/joints: Large osteophyte at the olecranon. There is no evidence of acute displaced fracture or dislocation. Soft tissues: There is soft tissue swelling appreciated. IMPRESSION: 1. Large osteophyte at the olecranon. 2. There is no evidence of acute displaced fracture or dislocation. Thank you for allowing us to participate in the care of your patient. Dictated and Authenticated by: Max Whitten MD 04/27/2021 1:07 PM Central Time ([place] & [place]) Departure - Departure Time of Disposition: 13:29 Disposition: Home, Self-Care 01 Condition: Good Clinical Impression: Skin tear of left upper extremity, Fall from ground level Injury of left elbow Qualifiers: Encounter type: initial encounter Qualified Code(s): S59.902A - Unspecified injury of left elbow, initial encounter - Discharge Information *PRESCRIPTION DRUG MONITORING PROGRAM REVIEWED*: Not Applicable *COPY OF PRESCRIPTION DRUG MONITORING REPORT IN PATIENT JACKI: Not Applicable Instructions: Skin Tear, [id number], Fall Prevention in the Home, Adult, [id number] Forms: ED Department Discharge Additional Instructions: Your Tetanus vaccine was updated to day (04/27/21). Rx: Bactroban Ointment 2% Keep wound dressing in place for 2 days. Then change dressing once or twice daily. Follow up in clinic in 5 to 7 days for recheck if needed. Ask your clinic doctor to consider a physical therapy referral for gait and strengthening to reduce your fall risk. - My Orders Last 24 Hours: My Active Orders 04/27/21 12:57 Vaccine to be Administered/Admin Charge [RC] ASDIRECTED Wound Care [RC] ONETIME - Assessment/Plan Last 24 Hours: My Active Orders 04/27/21 12:57 Vaccine to be Administered/Admin Charge [RC] ASDIRECTED Wound Care [RC] ONETIME
[2021-04-27] MEDS ORDERED: Bacitracin Oint 1 GM U/D Packet TOP ONE (12:57)
[2021-04-27] MEDS ORDERED: Diphtheria,Pertussis(Acell),Tetanus Vaccine 0.5 ML Syringe IM ONE (12:57)
--- NOTE | 2021-04-27 13:08 | CR ---
PROCEDURE INFORMATION: Exam: XR Left Elbow Exam date and time: 04/27/2021 12:39 PM Age: 85 years old Clinical indication: Injury or trauma; Fall; Blunt trauma (contusions or hematomas); Elbow; Left; Additional info: Fall landed on left elbow TECHNIQUE: Imaging protocol: XR Left elbow. Views: 3 or more views. COMPARISON: No relevant prior studies available. FINDINGS: Bones/joints: Large osteophyte at the olecranon. There is no evidence of acute displaced fracture or dislocation. Soft tissues: There is soft tissue swelling appreciated. IMPRESSION: 1. Large osteophyte at the olecranon. 2. There is no evidence of acute displaced fracture or dislocation.
== END 2021-04-27 14:36 | disposition home or self-care (01) ==
LOC: DL.ED 12:11
DX: S51.012A Laceration without foreign body of left elbow, initial encounter (principal); I48.91 Unspecified atrial fibrillation; I11.0 Hypertensive heart disease with heart failure; I50.9 Heart failure, unspecified; E78.00 Pure hypercholesterolemia, unspecified; Z79.01 Long term (current) use of anticoagulants; Z79.899 Other long term (current) drug therapy; Z23 Encounter for immunization; W18.39XA Other fall on same level, initial encounter
CPT/HCPCS: 73080-LT; 81001; 90471; 90715; 99283-25

== ENCOUNTER 2021-12-02 11:07 | Emergency (ER) | payer MEDICARE, OTHER ==
[2021-12-02 12:15] LABS: ANION GAP 13.9 mEq/L (7-13); CHLORIDE,CL 105 mmol/L (98-107); SODIUM,NA 140 mmol/L (136-145)
[2021-12-02 12:16] LABS: CORONAVIRUS COVID-19 NAA NEGATIVE (NEGATIVE); RESPIRATORY SYNCYTIAL VIR NAA NEGATIVE (NEGATIVE)
[2021-12-02] MEDS ORDERED: Iopamidol 612 MG/ML 100 ML Bottle IVPUSH ONE (12:33)
[2021-12-02] MEDS ORDERED: Heparin Sodium 5,000 Units/ML Vial IVPUSH ONE (14:58)
[2021-12-02] MEDS ORDERED: Heparin Sodium/0.45% NaCl 25,000 UNITS/500 ML BAG IV SCH (15:00)
== END 2021-12-02 15:39 ==
LOC: DL.ED 11:07
DX: I11.0 Hypertensive heart disease with heart failure (principal); I50.9 Heart failure, unspecified; I23.6 Thrombosis of atrium, auricular appendage, and ventricle as current complications following acute myocardial infarction; J90 Pleural effusion, not elsewhere classified; N28.1 Cyst of kidney, acquired; I48.91 Unspecified atrial fibrillation; E78.00 Pure hypercholesterolemia, unspecified; Z79.899 Other long term (current) drug therapy; Z20.822 Contact with and (suspected) exposure to COVID-19; Z79.01 Long term (current) use of anticoagulants
CPT/HCPCS: 0241U; 36415; 71045; 71260; 74176; 80053; 81001; 83605; 83880; 84484; 85025; 85610; 85730; 93005; 93010; 99285; J1644; Q9967